=== PATIENT | female | born 1940 | race Caucasian/White ===

== ENCOUNTER → 2016-06-06 | Outpatient (CLI) | payer MEDICARE ==
[~2016-06-06] MED LIST: *BLDWK7; *MAMMOGRAM; /AMIO20TA PO; ADVAIR200 INHALATION; ALBUTEROL INHALATION; ALDA25TA2; ALDA25TA2 PO; ANTIV 25 PO; ARTISOL2 OU; ASP325; ASPI325T PO; AVELOX PO; BENA25CA2 PO; BENA25TA4 PO; BENEPOW7 PO; CAHNTIXC PO; CEFTIN250 PO; CHAN0.5P PO; CICL0.776 EX; CLARITIN10 PO; COLA100C PO; COLA100C2 PO; COLACE; COMBIVENT PO; DOXYCYC100; DOXYCYC100 PO; DRISDOL50 PO; DUONSOL; DUONSOL INHALATION; DYAZIDE; DYAZIDE PO; FLUT1SPR2; FURO40TA2 PO; GABA300C3 PO; HABITROL14 TOPICAL; HABITROL2 TOPICAL; HABITROL21 TOPICAL; INSUDET SC; LANO0.1211 PO; LASI20TA PO; LASI80TA; LEVOXYL25 MCG PO; LIPI80TA; LIPITOR40 PO; LIPITOR80; LIPITOR80 PO; LISI10TA4 PO; LISINOPR5 PO; MACR100C3 PO; MAXZIDE PO; MAXZIDE25 PO; MOTRIN600 PO; MUCINEX PO; MYSO50TA5 PO; MYSOLINE50 PO; NASACORTAQ NASALLY; NASONEX NASAL; NICORETTE PO; NICOTROLIN; NORVASC5 PO; OXYGEN NC; PACE200T PO; PERC5TAB8; PRED20TA PO; PREDNISO10 PO; PRIM250T5 PO; PROA1AER INH; PROVENTILI INHALE; PROVENTILI PO; PROZAC20; RANI150T PO; RANI15TA PO; REME30TA PO; REMERON; REMERON PO; REMERON15 PO; SENN8.6T10 PO; SENO8.6T5; SENO8.6T5 PO; SENOKOTTAB; SIMV80TA PO; SPACER -; SPIR25TA2 PO; SPIRIVA; SYNT150T PO; SYNTHROID1 PO; TYLE325T5 PO; VITA100037 PO; VITA100066 PO; VITAMIN B COMPLE1; VITAMIN D50000 UNT; VITAMIN D50000 UNT PO; ZETIA PO; ZITHROZPAK PO; ZOCOR80 PO; ZOLOFT50; ZYBAN150; [UNRECOGNIZED DRUG - OTHER]; antivert PO
--- NOTE | 2016-06-11 11:46 | RADONC ---
RADIATION ONCOLOGY FOLLOWUP NOTE DATE: 06/06/2016 CHART NUMBER: [id number]. DIAGNOSIS: Lung cancer. STAGE: IA, [id number]. ECOG PERFORMANCE STATUS: 2. FOLLOWUP NOTE: Ms. 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 The patient presents today reporting that she is doing quite well with no complaints at this time related to her radiation therapy or disease. She continues to have physical limitations and is in a wheelchair, which is unchanged. She continues to have shortness of breath, which has not increased. She has weakness in her arms and legs and decreased energy. The patient's review of systems is positive for above, but is otherwise noncontributory. She denies nausea, vomiting, fevers, chills, night sweats, diplopia, headaches, anxiety, depression, anorexia, weight loss, visual disturbances, chest pain, urinary or bowel difficulties, bone pain or neurological problems. PHYSICAL EXAMINATION: The patient is a chronically ill-appearing white female in no acute distress who is presenting a wheelchair. HEENT: Exam is normocephalic, atraumatic. Extraocular movements are intact. There is no palpable cervical, supraclavicular, infraclavicular, axillary or inguinal lymphadenopathy present. Her lungs are clear to auscultation and percussion. Her heart is regular rate rhythm. Her abdomen is benign with no hepatosplenomegaly, masses or tenderness. Skeletal examination reveals no tenderness to pressure, percussion of the bony skeleton. Extremities: Reveal no clubbing, cyanosis or edema. ASSESSMENT: The patient is clinically stable at this time. She is scheduled for a PET scan in July. She is being closely followed by her medical oncologist, Dr. Solorzano as well as her other physicians and I have therefore set her up for routine followup in our office in 6 months' time. cc: MD Lloyd Francsico MD [facility] [address], [address] [facility] [address] Hong Kaur DO [facility] [id number] [facility] [id number] Suhas Quesada MD [facility] [address] [id number]
== END ==
LOC: M ONCR 10:59
PROVIDERS: ATTEND Radiology Radiation Oncology
DX: C34.12 Malignant neoplasm of upper lobe, left bronchus or lung (principal)

== ENCOUNTER → 2016-06-06 | Outpatient (CLI) | payer MEDICARE ==
[2016-06-06 11:39] LABS: ALBUMIN 3.1 GM/DL (3.2-5.2); ALBUMIN/GLOBULIN RATIO 0.78 (1.00-1.93); ALKALINE PHOSPHATASE 112 U/L (45-117); ALT/SGPT 27 U/L (12-78); ANION GAP 6 MEQ/L (8-16); AST/SGOT 24 U/L (15-37); BILIRUBIN,TOTAL 0.2 MG/DL (0.2-1.0); BLOOD UREA NITROGEN 22 MG/DL (7-18); CALCIUM LEVEL 8.5 MG/DL (8.8-10.2); CARBON DIOXIDE LEVEL 30 MEQ/L (21-32); CHLORIDE LEVEL 102 MEQ/L (98-107); CREATININE FOR GFR 0.78 MG/DL (0.55-1.02); FREE T4 1.31 NG/DL (0.76-1.46); GLOMERULAR FILTRATION RATE > 60.0 (>39); GLUCOSE, FASTING 83 MG/DL (83-110); POTASSIUM SERUM 4.7 MEQ/L (3.5-5.1); SODIUM LEVEL 138 MEQ/L (136-145); TOTAL PROTEIN 7.1 GM/DL (6.4-8.2)
== END ==
LOC: M LAB 09:43
PROVIDERS: ATTEND Nurse Practitioner Family
DX: E03.9 Hypothyroidism, unspecified (principal); E11.21 Type 2 diabetes mellitus with diabetic nephropathy

== ENCOUNTER 2016-06-17 05:01 | Inpatient (IN) | payer MEDICARE ==
[~2016-06-17] VITALS: Ht 165.1 cm; Wt 105.2 kg
[2016-06-17] MEDS ORDERED: IPRATROPIUM 0.5MG/ALBUTEROL 2.5MG INH SOL UD 3ML (DUONEB)(J7620) NEB PRN (06:15)
[2016-06-17 06:47] LABS: VENOUS BASE EXCESS -1.5 (-2.0-2.0); VENOUS O2 SATURATION 91.2 % (60.0-80.0); VENOUS PARTIAL PRESSURE CO2 45.3 mmHg (38.0-50.0); VENOUS STANDARD HCO3 23.1 MEQ/L; VENOUS TOTAL CO2 25.6 MEQ/L (24.0-28.0)
[2016-06-17 06:50] LABS: BASO % 0.2 % (0.0-1.0); EOS # 0.1 K/mm3 (0.0-0.50); EOS % 0.9 % (0.0-3.0); LARGE UNSTAINED CELL % 0.5 % (0.0-4.0); LYMPH # 0.3 K/mm3 (1.5-4.5); LYMPH % 3.3 % (24.0-44.0); MEAN CORPUSCULAR HEMOGLOBIN 28.3 pg (27.0-33.0); MEAN CORPUSCULAR HGB CONC 32.1 g/dl (32.0-36.5); MEAN CORPUSCULAR VOLUME 88.1 fl (80.0-96.0); MONO # 0.3 K/mm3 (0.0-0.8); MONO % 3.8 % (0.0-5.0); NEUTROPHILS # 7.1 K/mm3 (1.8-7.7); NEUTROPHILS % 91.2 % (36.0-66.0); PLATELET COUNT, AUTOMATED 234 k/mm3 (150-450); RED CELL DISTRIBUTION WIDTH 15.7 % (11.5-14.5); WHITE BLOOD COUNT 7.8 K/mm3 (4.0-10.0)
[2016-06-17 07:07] LABS: CALCIUM LEVEL 7.9 MG/DL (8.8-10.2); GLOMERULAR FILTRATION RATE 57.4 (>39); POTASSIUM SERUM 3.6 MEQ/L (3.5-5.1)
[2016-06-17] MEDS ORDERED: OSELTAMIVIR PHOSPHATE 75 MG CAP (TAMIFLU) PO ONE (07:15)
[2016-06-17] MEDS: HumaLOG INSULIN (NovoLOG) PER UNIT SC SCH ×4 (07:30→21:00)
[2016-06-17] MEDS: IPRATROPIUM 0.5MG/ALBUTEROL 2.5MG INH SOL UD 3ML (DUONEB)(J7620) NEB SCH ×3 (08:00→19:38)
[2016-06-17] MEDS ORDERED: PRIM50TA6 PO (08:05)
[2016-06-17] MEDS ORDERED: MECL-86 PO ×2 (08:05)
[2016-06-17] MEDS ORDERED: ATOR1TAB18 PO (08:06)
[2016-06-17] MEDS ORDERED: LEVO150T7 PO (08:06)
[2016-06-17] MEDS ORDERED: GLUCOSE 4 GM CHEW TABLET PO PRN (09:00)
[2016-06-17] MEDS ORDERED: GLUCAGON FOR INJ 1 MG VIAL (J1610) SC PRN (09:00)
[2016-06-17] MEDS ORDERED: ONDANSETRON 4 MG TAB (S0181) PO PRN (09:00)
[2016-06-17] MEDS: OSELTAMIVIR PHOSPHATE 75 MG CAP (TAMIFLU) PO SCH ×2 (09:00→22:08)
[2016-06-17] MEDS ORDERED: ACETAMINOPHEN TAB 650MG DOSE (2X325MG) PO PRN (09:00)
[2016-06-17] MEDS ORDERED: FUROSEMIDE 20 MG TAB PO SCH (09:00)
[2016-06-17] MEDS ORDERED: DEXTROSE 50% 50 ML SYRINGE IV PRN (09:00)
[2016-06-17] MEDS: ASPIRIN 325 MG TAB PO SCH (09:42)
[2016-06-17] MEDS: methylPREDNISolone INJ 125 MG/2 ML VIAL (J2930) IV SCH ×2 (09:43→17:30)
[2016-06-17] MEDS: AMIODARONE 200 MG TAB (PACERONE) PO SCH (09:43)
[2016-06-17] MEDS: PANTOPRAZOLE 40MG TAB (PROTONIX) PO SCH (09:43)
[2016-06-17] MEDS: DOCUSATE SODIUM 100 MG CAP PO SCH ×2 (09:43→22:09)
[2016-06-17] MEDS: IPRATROPIUM 0.5MG/ALBUTEROL 2.5MG INH SOL UD 3ML (DUONEB)(J7620) NEB PRN ×2 (09:52→17:13)
[2016-06-17] MEDS ORDERED: FUROSEMIDE 100 MG/10 ML VIAL (J1940) IV SCH (10:00)
[2016-06-17] MEDS: LEVOTHYROXINE 0.15 MG TAB (150 MCG) PO SCH (11:07)
[2016-06-17] MEDS: SENNA 8.6 MG TAB (SENOKOT) PO SCH ×2 (11:07→22:08)
[2016-06-17] MEDS: PRIMIDONE 50 MG TAB PO SCH ×2 (11:08→22:09)
--- NOTE | 2016-06-17 11:51 | REP ---
Dyspnea and cough. COMPARISON: 10/30/2015 Chronic changes are seen in the left lung with previous operative procedure. There are Cristina B lines involving the right lung with a generalized increase in the interstitial markings, pulmonary vascular haziness, right perihilar, peribronchial cuffing, and evidence of pulmonary vascular redistribution. The cardiomediastinal silhouette is unchanged. IMPRESSION: 1. I suspect there is interstitial edema on the right as described above. This needs to be correlated clinically. 2. Chronic changes as described above. Signed by Lonnie Vega DO 06/17/2016 01:52 P
[2016-06-17 14:00] VITALS: BP 98/40
[2016-06-17] MEDS: HEPARIN SOD (PORCINE) 5000 UNITS/ML VIAL SC SCH ×2 (14:43→22:10)
[2016-06-17] MEDS ORDERED: cefTRIAXone SOD 1 GM in D5W MINI-BAG PLUS 50 ML IV SCH (15:00)
[2016-06-17] MEDS ORDERED: AZITHROMYCIN INJ 500 MG, VIAL MATE ADAPTER 1 EACH in D5W 250 ML IV SCH (16:00)
--- NOTE | 2016-06-17 19:50 | ECGEPIP ---
Stationary ECG Study [facility] - ED Test Date: 2016-06-17 Pat Name: JENNIFER SEVERINO Department: Room: - Gender: F Field Clerk: ashleigh : 1940 Requested By: DIANNE Segura Order Number: [id number] Reading MD: Armen Louis Measurements Intervals [place] Rate: 93 P: -2 WI: 152 QRS: 17 QRSD: 90 T: 118 QT: 394 QTc: 492 Interpretive Statements SINUS RHYTHM ST DEVIATION AND MODERATE T-WAVE ABNORMALITY, CONSIDER LATERAL ISCHEMIA PROLONGED QTC CW 10/30/15 - RATE INCREASED QTC PROLONGED NONSPECIFIC ST T WAVE CHANGES Electronically Signed On 06-17-2016 19:50:24 EDT by Armen Louis
[2016-06-17] MEDS ORDERED: OSELTAMIVIR PHOSPHATE 75 MG CAP (TAMIFLU) PO SCH (21:00)
[2016-06-17 22:00] VITALS: BP 109/55
[2016-06-17] MEDS: ATORVASTATIN 20 MG TAB PO SCH (22:08)
[2016-06-17] MEDS: LEVEMIR (INSULIN DETEMIR) 1 UNITS/0.01ML SC SCH (22:10)
[2016-06-18] MEDS: IPRATROPIUM 0.5MG/ALBUTEROL 2.5MG INH SOL UD 3ML (DUONEB)(J7620) NEB SCH ×4 (01:21→19:39)
[2016-06-18] MEDS: methylPREDNISolone INJ 125 MG/2 ML VIAL (J2930) IV SCH ×3 (01:29→17:26)
[2016-06-18 06:00] VITALS: BP 100/58
[2016-06-18] MEDS: LEVOTHYROXINE 0.15 MG TAB (150 MCG) PO SCH (06:05)
[2016-06-18] MEDS: HEPARIN SOD (PORCINE) 5000 UNITS/ML VIAL SC SCH ×3 (06:06→21:22)
[2016-06-18 06:37] LABS: BASO % 0.1 % (0.0-1.0); EOS % 0.9 % (0.0-3.0); LARGE UNSTAINED CELL % 0.8 % (0.0-4.0); LYMPH # 0.4 K/mm3 (1.5-4.5); LYMPH % 6.7 % (24.0-44.0); MEAN CORPUSCULAR HEMOGLOBIN 28.4 pg (27.0-33.0); MEAN CORPUSCULAR HGB CONC 32.9 g/dl (32.0-36.5); MEAN CORPUSCULAR VOLUME 86.4 fl (80.0-96.0); MONO # 0.3 K/mm3 (0.0-0.8); MONO % 5.9 % (0.0-5.0); NEUTROPHILS # 4.5 K/mm3 (1.8-7.7); NEUTROPHILS % 85.7 % (36.0-66.0); PLATELET COUNT, AUTOMATED 219 k/mm3 (150-450); RED CELL DISTRIBUTION WIDTH 15.7 % (11.5-14.5); WHITE BLOOD COUNT 5.2 K/mm3 (4.0-10.0)
[2016-06-18 06:56] LABS: ALBUMIN 2.6 GM/DL (3.2-5.2); ALBUMIN/GLOBULIN RATIO 0.55 (1.00-1.93); ALKALINE PHOSPHATASE 75 U/L (45-117); ALT/SGPT 26 U/L (12-78); ANION GAP 8 MEQ/L (8-16); AST/SGOT 35 U/L (15-37); BILIRUBIN,TOTAL 0.1 MG/DL (0.2-1.0); BLOOD UREA NITROGEN 21 MG/DL (7-18); CALCIUM LEVEL 8.3 MG/DL (8.8-10.2); CARBON DIOXIDE LEVEL 28 MEQ/L (21-32); CHLORIDE LEVEL 100 MEQ/L (98-107); CREATININE FOR GFR 0.77 MG/DL (0.55-1.02); GLOMERULAR FILTRATION RATE > 60.0 (>39); GLUCOSE, FASTING 185 MG/DL (83-110); POTASSIUM SERUM 3.8 MEQ/L (3.5-5.1); SODIUM LEVEL 136 MEQ/L (136-145); TOTAL PROTEIN 7.3 GM/DL (6.4-8.2)
[2016-06-18] MEDS: HumaLOG INSULIN (NovoLOG) PER UNIT SC SCH ×4 (07:41→21:00)
--- NOTE | 2016-06-18 07:57 | IPNPDOC ---
Subjective Date Seen The patient was seen on 06/18/16. Subjective Chief Complaint/HPI The patient is a 75-year-old female admitted with a reason for visit of Copd Exacerbation; Influenza A. Events since last encounter Noting significant improvement in breathing symptoms. Diuresed with Lasix overnight. Stopped due to soft BP. Uses nocturnal oxygen 2 LNC at home. Non- oxygen dependednt during day. Follows with Dr. Kaur as an outpatient. Constitutional: Denies: Chills, Fever, Night Sweats ENT: Denies: Dysphagia, Ear Pain, Head Aches Skin: Denies: Breakdown, Lesions, Rash Pulmonary: Reports: Cough, Dyspnea Cardiovascular: Denies: Chest Pain, Lt Headedness, Orthopnea, Palpitations, Paroxysmal Noc. Dyspnea Gastrointestinal: Denies: Abdominal Pain, Constipation, Diarrhea, Nausea, Vomiting Musculoskeletal: Denies: Back Pain, Joint Pain, Muscle Pain, Neck Pain, Spasms Psych: Reports: Mood Normal, Denies: Depression, Memory Issues Objective Physical Examination General Exam: Positive: Alert, No Acute Distress Eye Exam: Positive: Conjunctiva & lids normal, EOMI, PERRLA, Negative: Sclera icteric Neck Exam: Positive: Supple, Negative: JVD, thyromegaly Chest Exam: Positive: Wheezing Extremity Exam: Positive: Normal pulses, Negative: Clubbing, Cyanosis, Edema Skin Exam: Positive: Nl turgor and temperature, Negative: Breakdown, Rash Psych Exam: Positive: Mental status NL, Mood NL, Oriented x 3 Assessment /Plan Problems (1) COPD exacerbation Status: Acute Problem Text: Solumedrol 60 mg IV q 8 hrs. Azithromycin and Rochephin D#2. Presumed pneumonia vs pulmonary edema on CXR. Will reopeat CXR today. Wean oxygen during day. Continue Nocturnal oxygenation at 2LNC. (2) Influenza A Status: Acute Response to Treatment: Improving Problem Specific Plan: Monitor Clinically Problem Text: Tamiflu day #2 (3) COPD (chronic obstructive pulmonary disease) Status: Acute (4) Diabetes mellitus Status: Chronic Response to Treatment: Stable Problem Specific Plan: Monitor Clinically (5) CAD (coronary artery disease) Status: Chronic Problem Specific Plan: Monitor Clinically (6) Hypothyroid Status: Chronic Problem Specific Plan: Monitor Clinically (7) Paroxysmal atrial fibrillation Status: Chronic Plan/VTE VTE Prophylaxis Ordered?: Yes (Heparin) Plan/Urinary Catheter Reason for insertion/continuin: Patient request VS, I&O, 24H, Kenny Vital Signs/I&O Vital Signs Date Time Temp Pulse Resp B/P Pulse Ox O2 Delivery O2 Flow Rate FiO2 06/18/16 06:00 98.0 76 20 100/58 100 Nasal Cannula 2.0 06/17/16 05:25 92 I&O- Last 24 Hours up to 6 AM 06/18/16 05:59 Intake Total 840 ml Output Total 975 ml Balance -135 ml Laboratory Data 24H LABS Laboratory Tests 2 06/17/16 09:23: Bedside Glucose (Misc Panel) 195H 06/17/16 12:55: Bedside Glucose (Misc Panel) 192H 06/17/16 17:05: Bedside Glucose (Misc Panel) 223H 06/17/16 20:27: Bedside Glucose (Misc Panel) 165H 06/18/16 05:46: Blood Urea Nitrogen 21H, Creatinine 0.77, Sodium Level 136, Potassium Level 3.8 , Chloride Level 100, Carbon Dioxide Level 28, Calcium Level 8.3L, Aspartate Amino Transf (AST/SGOT) 35, Alanine Aminotransferase (ALT/SGPT) 26, Alkaline Phosphatase 75, Total Bilirubin 0.1L, Total Protein 7.3, Albumin 2.6L, Albumin/ Globulin Ratio 0.55L, Anion Gap 8, White Blood Count 5.2, Red Blood Count 3.08L , Hemoglobin 8.8L, Hematocrit 26.6L, Mean Corpuscular Volume 86.4, Mean Corpuscular Hemoglobin 28.4, Mean Corpuscular Hemoglobin Concent 32.9, Red Cell Distribution Width 15.7H, Platelet Count 219, Neutrophils (%) (Auto) 85.7H, Lymphocytes (%) (Auto) 6.7L, Monocytes (%) (Auto) 5.9H, Eosinophils (%) (Auto) 0.9, Basophils (%) (Auto) 0.1, Neutrophils # (Auto) 4.5, Lymphocytes # (Auto) 0.4L, Monocytes # (Auto) 0.3, Eosinophils # (Auto) 0.0, Basophils # (Auto) 0.0, Glomerular Filtration Rate > 60.0, Large Unclassified Cells # 0.0, Large Unclassified Cells % 0.8 CBC/BMP Laboratory Tests 06/18/16 05:46 Calcium Level 8.3 L, Aspartate Amino Transf (AST/SGOT) 35, Alanine Aminotransferase (ALT/SGPT) 26, Alkaline Phosphatase 75, Total Bilirubin 0.1 L, Total Protein 7.3, Albumin 2.6 L, Red Blood Count 3.08 L, Mean Corpuscular Volume 86.4, Mean Corpuscular Hemoglobin 28.4, Mean Corpuscular Hemoglobin Concent 32.9, Red Cell Distribution Width 15.7 H, Neutrophils (%) (Auto) 85.7 H , Lymphocytes (%) (Auto) 6.7 L, Monocytes (%) (Auto) 5.9 H, Eosinophils (%) ( Auto) 0.9, Basophils (%) (Auto) 0.1, Neutrophils # (Auto) 4.5, Lymphocytes # ( Auto) 0.4 L, Monocytes # (Auto) 0.3, Eosinophils # (Auto) 0.0, Basophils # (Auto ) 0.0 Microbiology Microbiology 06/17/16 Blood Culture, Received Pending 06/17/16 Blood Culture - Preliminary, Resulted No growth after 24 hours . All specim... 06/17/16 Influenza Virus Type A Antigen - Final, Complete 06/17/16 Influenza Virus Type B Antigen - Final, Complete Adilene Chen [facility] Jun 18, 2016 07:57
[2016-06-18] MEDS: DOCUSATE SODIUM 100 MG CAP PO SCH ×2 (09:45→21:21)
[2016-06-18] MEDS: AMIODARONE 200 MG TAB (PACERONE) PO SCH (09:46)
[2016-06-18] MEDS: ASPIRIN 325 MG TAB PO SCH (09:46)
[2016-06-18] MEDS: SENNA 8.6 MG TAB (SENOKOT) PO SCH ×2 (09:46→21:21)
[2016-06-18] MEDS: PANTOPRAZOLE 40MG TAB (PROTONIX) PO SCH (09:46)
[2016-06-18] MEDS: OSELTAMIVIR PHOSPHATE 75 MG CAP (TAMIFLU) PO SCH ×2 (09:46→21:21)
[2016-06-18] MEDS: PRIMIDONE 50 MG TAB PO SCH ×2 (09:47→21:21)
--- NOTE | 2016-06-18 10:00 | REP ---
CHEST X-RAY: TWO VIEWS. HISTORY: Followup COPD. Pulmonary edema. COMPARISON STUDY: June 17, 2016 FINDINGS: The patient is status post left thoracotomy with clips in the left hilus and some volume loss in the left hemithorax. There is tenting of the left hemidiaphragm. Some pleural thickening or fluid is seen at the base, and there is pleural thickening along the lateral aspect of the chest. Clips are noted in the soft tissues of the neck on the left. Increased markings are noted in the left perihilar region on the frontal view and superiorly and posteriorly on the lateral radiograph. This is unchanged. The right lung is clear. IMPRESSION: Stable chronic changes post thoracotomy on the left. No new infiltrate. Signed by Arturo Greene MD 06/18/2016 12:19 P
--- NOTE | 2016-06-18 11:22 | HPE ---
DATE OF ADMISSION: 06/17/[address]. Suhas Quesada. Attending today is Dr. Kwesi Jeong. HISTORY: This is a 75-year-old female patient who presented to [facility] Emergency Room with a 2-1/2-day history of increasing shortness of breath, cough, body aches, intermittent sore throat, intermittent headaches. 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 She was also demonstrating some confusion. She woke a family member and asked for them to transport her to the emergency room. They instead called emergency medical services (EMS), and she was brought in. She was found to be hypoxemic. She was administered a DuoNeb. Blood work and laboratory testing revealed that she was positive for influenza A. She did have a chest x-ray done, as well, which was without any active infiltrates but questionable interstitial edema. Admission was recommended as a result. Her past medical history includes: 1. Small cell lung cancer in 2008 with recurrence in 2014, status post radiation. 2. Diabetes mellitus type 2. 3. Hypothyroidism. 4. Morbid obesity. 5. Hyperlipidemia. 6. Hypertension. 7. Hypertensive heart disease. 8. Diastolic congestive heart failure. 9. Peripheral vascular disease. 10. Paroxysmal atrial fibrillation, on amiodarone. 11. Chronic obstructive pulmonary disease (COPD). 12. Bronchiectasis. 13. Fatty liver. 14. History of pancreatitis. 15. Depression. 16. Vitamin D deficiency. 17. Essential tremor. SURGICAL HISTORY: Includes: 1. LCA and aortal femoral bypass. 2. Partial hysterectomy in the . 3. Left CEA in 1997. 4. Left upper lobectomy secondary to cancer in 2008. FAMILY HISTORY: Is noncontributory. SOCIAL HISTORY: She is a former smoker. She has quit in the last 7 or 8 years. She does try to follow a [id number] diet. She does not exercise regularly. She lives alone at home. ALLERGIES: Include BACITRACIN and NEOMYCIN, which cause itching rash. PENICILLIN causes nausea and vomiting. REVIEW OF SYSTEMS: The patient denies any chest pain, palpitations. She denies any lightheadedness or dizziness. She has not had any abdominal pain, nausea, vomiting, or diarrhea. She does have a history of chronic constipation, for which she takes medication. Otherwise, review of systems is negative or as mentioned above. VITAL SIGNS: Reveal a temperature of 100.7, 101,1 on admission. Pulse is 88. Respirations are 20. Blood pressure is 126/58. Pulse oximetry is 95 on 3 liters via nasal cannula. In general, this is a morbidly obese elderly female who is lying comfortably in the emergency room [facility]. She is accompanied by family. HEENT: Head is normocephalic, atraumatic. Pupils are equal, round, reactive to light and accommodation. Tympanic membranes are clear and flat bilaterally. Oropharynx is slightly erythematous. NECK: Is supple. She has mild anterior cervical palpable lymphadenopathy. LUNGS: Are diminished. She has end expiratory wheezes. She has bibasilar crackles. CARDIOVASCULAR: Is regular rate and rhythm. She has no audible murmurs. ABDOMEN: Is morbidly obese, soft, nontender. No palpable organomegaly. She has positive bowel sounds. EXTREMITIES: Are puffy with trace bilateral lower extremity pedal and pretibial edema. INVESTIGATIONS: Reveal a white blood cell count of 7.8, hemoglobin is 9.5, hematocrit is 29.5, platelets 234. Sodium is 136, potassium is 3.6, chloride is 100, carbon dioxide is 25, BUN 16, creatinine 1, glucose 230. Again, influenza A is positive. Influenza B is negative. Chest x-ray suggests interstitial edema. ASSESSMENT AND PLAN: 1. Influenza A causing a chronic obstructive pulmonary disease exacerbation. I will start her on Tamiflu 75 mg by mouth twice a day times 5 days. I counseled the patient on the risks and benefits associated with medication. I will also start her on Solu-Medrol 60 mg intravenous (IV) every 8 hours. Will titrate her oxygen levels to keep her between 88% and 92%. I will order DuoNebs every 6 hours and every 2 hours as needed for increasing shortness of breath. She will be admitted to medical-surgical floor for monitoring. 2. Acute on chronic diastolic congestive heart failure. She appears to be on Lasix 100 mg by mouth daily. I will give her intravenous (IV) Lasix 60 mg three times daily. Will reassess this. I do not believe she has got a whole lot of fluid to come off, but she does appear mildly fluid overloaded. Will resume her oral Lasix when it is appropriate. She will have a [id number] diet. 3. Diabetes mellitus type 2. She is on Levemir at home. Will reduce this dose while she is in the hospital and place her on sliding scale insulin. She will be on a consistent-carbohydrate diet. 4. Hypertensive heart disease with heart failure. She is not on any antihypertensives. In fact, her blood pressure has been running low in the office as of late; and, therefore, this is appropriate. Her pressures are currently stable in the emergency room, but we will continue her aspirin and statin. 5. Hypothyroidism. Will continue her Synthroid. 6. Gastrointestinal (GI) prophylaxis. Will place her on Protonix 40 mg daily. 7. Deep venous thrombosis (DVT) prophylaxis. Will place her on heparin, sequential compression devices (SCDs), and thromboembolic deterrents (TEDs).
[2016-06-18 14:00] VITALS: BP 126/87
[2016-06-18] MEDS: ATORVASTATIN 20 MG TAB PO SCH (21:20)
[2016-06-18] MEDS: LEVEMIR (INSULIN DETEMIR) 1 UNITS/0.01ML SC SCH (21:22)
[2016-06-18 22:00] VITALS: BP 130/77
[2016-06-19] MEDS: IPRATROPIUM 0.5MG/ALBUTEROL 2.5MG INH SOL UD 3ML (DUONEB)(J7620) NEB SCH ×2 (01:33→07:26)
[2016-06-19] MEDS: methylPREDNISolone INJ 125 MG/2 ML VIAL (J2930) IV SCH ×2 (02:08→10:27)
[2016-06-19] MEDS: LEVOTHYROXINE 0.15 MG TAB (150 MCG) PO SCH (05:46)
[2016-06-19] MEDS: HEPARIN SOD (PORCINE) 5000 UNITS/ML VIAL SC SCH (05:46)
[2016-06-19 06:00] VITALS: BP 120/59
[2016-06-19 06:25] LABS: BASO % 0.1 % (0.0-1.0); EOS % 0.2 % (0.0-3.0); LARGE UNSTAINED CELL # 0.1 K/mm3 (0.0-0.4); LYMPH # 0.5 K/mm3 (1.5-4.5); LYMPH % 8.8 % (24.0-44.0); MEAN CORPUSCULAR HEMOGLOBIN 29.3 pg (27.0-33.0); MEAN CORPUSCULAR HGB CONC 33.7 g/dl (32.0-36.5); MEAN CORPUSCULAR VOLUME 86.8 fl (80.0-96.0); MONO # 0.3 K/mm3 (0.0-0.8); MONO % 5.8 % (0.0-5.0); NEUTROPHILS # 4.9 K/mm3 (1.8-7.7); NEUTROPHILS % 84.1 % (36.0-66.0); PLATELET COUNT, AUTOMATED 221 k/mm3 (150-450); RED CELL DISTRIBUTION WIDTH 15.8 % (11.5-14.5); WHITE BLOOD COUNT 5.9 K/mm3 (4.0-10.0)
[2016-06-19 06:29] LABS: ALBUMIN 2.5 GM/DL (3.2-5.2); ALBUMIN/GLOBULIN RATIO 0.52 (1.00-1.93); ALKALINE PHOSPHATASE 74 U/L (45-117); ALT/SGPT 35 U/L (12-78); ANION GAP 7 MEQ/L (8-16); AST/SGOT 44 U/L (15-37); BILIRUBIN,TOTAL 0.1 MG/DL (0.2-1.0); BLOOD UREA NITROGEN 26 MG/DL (7-18); CALCIUM LEVEL 8.4 MG/DL (8.8-10.2); CARBON DIOXIDE LEVEL 28 MEQ/L (21-32); CHLORIDE LEVEL 105 MEQ/L (98-107); CREATININE FOR GFR 0.86 MG/DL (0.55-1.02); GLOMERULAR FILTRATION RATE > 60.0 (>39); GLUCOSE, FASTING 126 MG/DL (83-110); POTASSIUM SERUM 4.3 MEQ/L (3.5-5.1); SODIUM LEVEL 140 MEQ/L (136-145); TOTAL PROTEIN 7.3 GM/DL (6.4-8.2)
[2016-06-19] MEDS: PRIMIDONE 50 MG TAB PO SCH (08:27)
[2016-06-19] MEDS: PANTOPRAZOLE 40MG TAB (PROTONIX) PO SCH (08:27)
[2016-06-19] MEDS: ASPIRIN 325 MG TAB PO SCH (08:27)
[2016-06-19] MEDS: HumaLOG INSULIN (NovoLOG) PER UNIT SC SCH (08:27)
[2016-06-19] MEDS: SENNA 8.6 MG TAB (SENOKOT) PO SCH (08:28)
[2016-06-19] MEDS: DOCUSATE SODIUM 100 MG CAP PO SCH (08:28)
[2016-06-19] MEDS: OSELTAMIVIR PHOSPHATE 75 MG CAP (TAMIFLU) PO SCH (08:28)
[2016-06-19] MEDS: AMIODARONE 200 MG TAB (PACERONE) PO SCH (08:28)
--- NOTE | 2016-06-19 09:26 | IPNPDOC ---
Subjective Date Seen The patient was seen on 06/19/16. Subjective Chief Complaint/HPI The patient is a 75-year-old female admitted with a reason for visit of Copd Exacerbation; Influenza A. Events since last encounter Feeling well. using oxygen at HS. Placed on oxygen during waking hours with levels at 100%. Patient continues to improve. Needs to clear PT with stairs today for safe DC. Constitutional: Denies: Chills, Fever, Night Sweats Pulmonary: Reports: Cough, Dyspnea Cardiovascular: Denies: Chest Pain, Lt Headedness, Orthopnea, Palpitations, Paroxysmal Noc. Dyspnea Gastrointestinal: Denies: Abdominal Pain, Constipation, Diarrhea, Nausea, Vomiting Genitourinary: Denies: Dysuria, Frequency, Incontinence, Retention Psych: Reports: Mood Normal, Denies: Depression, Memory Issues Objective Physical Examination General Exam: Positive: Alert, No Acute Distress Eye Exam: Positive: Conjunctiva & lids normal, EOMI, PERRLA, Negative: Sclera icteric Neck Exam: Positive: Supple, Negative: JVD, thyromegaly Chest Exam: Positive: Clear to auscultation, Normal air movement Extremity Exam: Positive: Normal pulses, Negative: Clubbing, Cyanosis, Edema Skin Exam: Positive: Nl turgor and temperature, Negative: Breakdown, Rash Psych Exam: Positive: Mental status NL, Mood NL, Oriented x 3 Assessment /Plan Problems (1) COPD exacerbation Status: Acute Problem Text: 06/19/16: change to po Prednisone today. Noc ox tonight on RA to prove need for nocturnal oxygen, 100% on 2LNC. Solumedrol 60 mg IV q 8 hrs. Azithromycin and Rocephin D#2. Presumed pneumonia vs pulmonary edema on CXR. Will repeat CXR today. Wean oxygen during day. Continue Nocturnal oxygenation at 2LNC. (2) Influenza A Status: Acute Response to Treatment: Improving Problem Specific Plan: Monitor Clinically Problem Text: Tamiflu day #2 (3) COPD (chronic obstructive pulmonary disease) Status: Chronic (4) Diabetes mellitus Status: Chronic Response to Treatment: Stable Problem Specific Plan: Monitor Clinically (5) CAD (coronary artery disease) Status: Chronic Problem Specific Plan: Monitor Clinically (6) Hypothyroid Status: Chronic Problem Specific Plan: Monitor Clinically (7) Paroxysmal atrial fibrillation Status: Chronic Plan/VTE VTE Prophylaxis Ordered?: Yes (Heparin) Plan/Urinary Catheter Reason for insertion/continuin: Patient request VS, I&O, 24H, [facility] Vital Signs/I&O Vital Signs Date Time Temp Pulse Resp B/P Pulse Ox O2 Delivery O2 Flow Rate FiO2 06/19/16 06:00 97.7 73 19 120/59 100 Nasal Cannula 2.0 06/17/16 05:25 92 I&O- Last 24 Hours up to 6 AM 06/19/16 05:59 Intake Total 2340 ml Output Total 1400 ml Balance 940 ml Laboratory Data 24H LABS Laboratory Tests 2 06/18/16 11:58: Bedside Glucose (Misc Panel) 137H 06/18/16 16:37: Bedside Glucose (Misc Panel) 198H 06/18/16 20:51: Bedside Glucose (Misc Panel) 168H 06/19/16 05:53: Blood Urea Nitrogen 26H, Creatinine 0.86, Sodium Level 140, Potassium Level 4.3 , Chloride Level 105, Carbon Dioxide Level 28, Calcium Level 8.4L, Aspartate Amino Transf (AST/SGOT) 44H, Alanine Aminotransferase (ALT/SGPT) 35, Alkaline Phosphatase 74, Total Bilirubin 0.1L, Total Protein 7.3, Albumin 2.5L, Albumin/ Globulin Ratio 0.52L, Anion Gap 7L, White Blood Count 5.9, Red Blood Count 3.08L , Hemoglobin 9.0L, Hematocrit 26.7L, Mean Corpuscular Volume 86.8, Mean Corpuscular Hemoglobin 29.3, Mean Corpuscular Hemoglobin Concent 33.7, Red Cell Distribution Width 15.8H, Platelet Count 221, Neutrophils (%) (Auto) 84.1H, Lymphocytes (%) (Auto) 8.8L, Monocytes (%) (Auto) 5.8H, Eosinophils (%) (Auto) 0.2, Basophils (%) (Auto) 0.1, Neutrophils # (Auto) 4.9, Lymphocytes # (Auto) 0.5L, Monocytes # (Auto) 0.3, Eosinophils # (Auto) 0.0, Basophils # (Auto) 0.0, Glomerular Filtration Rate > 60.0, Large Unclassified Cells # 0.1, Large Unclassified Cells % 1.0 CBC/BMP Laboratory Tests 06/19/16 05:53 Calcium Level 8.4 L, Aspartate Amino Transf (AST/SGOT) 44 H, Alanine Aminotransferase (ALT/SGPT) 35, Alkaline Phosphatase 74, Total Bilirubin 0.1 L, Total Protein 7.3, Albumin 2.5 L, Red Blood Count 3.08 L, Mean Corpuscular Volume 86.8, Mean Corpuscular Hemoglobin 29.3, Mean Corpuscular Hemoglobin Concent 33.7, Red Cell Distribution Width 15.8 H, Neutrophils (%) (Auto) 84.1 H , Lymphocytes (%) (Auto) 8.8 L, Monocytes (%) (Auto) 5.8 H, Eosinophils (%) ( Auto) 0.2, Basophils (%) (Auto) 0.1, Neutrophils # (Auto) 4.9, Lymphocytes # ( Auto) 0.5 L, Monocytes # (Auto) 0.3, Eosinophils # (Auto) 0.0, Basophils # (Auto ) 0.0 Microbiology Microbiology 06/17/16 Blood Culture - Preliminary, Resulted No growth after 24 hours . All specim... 06/17/16 Blood Culture - Preliminary, Resulted No Growth after 48 hours. All Specime... 06/17/16 Influenza Virus Type A Antigen - Final, Complete 06/17/16 Influenza Virus Type B Antigen - Final, Complete Adilene Chen [facility] Jun 19, 2016 09:26
[2016-06-19] MEDS ORDERED: PRED20TA PO (09:45)
[2016-06-19] MEDS ORDERED: OSEL75CA2 PO (09:48)
--- NOTE | 2016-06-19 12:19 | DSES ---
DATE OF ADMISSION: 06/17/2016 DATE OF DISCHARGE: 06/19/2016 PRIMARY CARE PROVIDER: Dr. Suhas Quesada. ATTENDING PHYSICIAN: Dr. Kwesi Jeong HISTORY OF PRESENT ILLNESS: 75-year-old female presented to [facility] emergency room with a 2-1/2-day history of increasing shortness of breath , cough, body aches, sore throat, headaches. Workup did demonstrate that the patient was positive for influenza A and was mildly hypoxic on presentation with oxygen saturation in the 80s on presentation. HISTORY: The patient was placed on Tamiflu 75 mg twice a day for 5 days. Placed on Solu-Medrol 50 mg IV every 8 hours. Oxygen was started and given DuoNebs every 6 hours and every 2 hours as needed. The patient improved significantly and was able to be weaned off of oxygen within 24 hours. However, has continued on nocturnal oxygen which she uses at home. The patient has been saturating at 100% on 2 liters nasal cannula nocturnal oxygen saturations. I offered to repeat patient's NOCOX while she was an inpatient to see of she truly does need nocturnal oxygenation, however, she declines and wishes to go home and request that this be completed on an outpatient basis. PHYSICAL EXAMINATION: Vitals are stable. She is afebrile. Oxygen saturation 97% on room air. Blood pressure 120/59, heart rate 73, temperature 97.7. HEENT Neck is supple without lymphadenopathy or jugular venous distention. CARDIOVASCULAR: Heart regular rhythm and regular. PULMONARY: Lungs clear to auscultation bilaterally. ABDOMEN: Soft and nontender. EXTREMITIES: Bilateral lower extremities are without any edema. NEURO: She is alert and oriented times three. No tremors appreciated. PSYCH: Affect is appropriate. Conversation is congruent. Patient maintains eye contact. ASSESSMENT: 1. Influenza A 2. COPD exacerbation. 3. Diabetes. 4. History of small cell lung cancer in 2009 with recurrence in 2015 and radiation. 5. Hyperthyroidism. 6. Hyperlipidemia. 7. Morbid obesity. 8. Hypertension. 9. Hypertensive heart disease. 10. Diastolic congestive heart failure. 11. Peripheral vascular disease. 12. Paroxysmal atrial fibrillation. 13. History of bronchiectasis. 14. Fatty liver. 15. Depression. 16. Vitamin D deficiency. 17. Essential tremor. PLAN: The patient will be discharged home. Diet is carbohydrate consistent. Activities as tolerated. She will followup with primary care provider within the next 7 days. MEDICATIONS: - Tamiflu 75 mg by mouth twice a day, #6 capsules are given for a total of 5 days - prednisone 20 mg daily - acetaminophen 325 mg tablets, two by mouth every 4 hours as needed for pain. - albuterol HFA, two puffs four times a day as needed shortness of breath - amiodarone 200 mg by mouth daily - artificial tears one drop OU twice a day as needed dry eyes - aspirin 325 mg by mouth daily - atorvastatin 80 mg by mouth nightly - vitamin D 1000 international units. She is to take two by mouth daily - docusate sodium, 100 mg two by mouth twice a day as needed constipation - Flonase two sprays each nostril daily - furosemide 100 mg by mouth daily - Levemir 45 units subcutaneously nightly - levothyroxine 150 mcg by mouth a.m. - meclizine 25 mg by mouth twice a day - meclizine 25 mg by mouth nightly as needed vertigo or dizziness - primidone 50 mg tablets. She takes 200 mg by mouth q a.m. - primidone 50 mg tablets two by mouth every night - senna two tablets by mouth twice a day as needed constipation. - Benefiber one packet daily The patient is discharged in stable and satisfactory condition with no further questions at the time of discharge. [facility]
== END 2016-06-19 12:38 | disposition home or self-care (01) | DRG 194 ==
LOC: EDBD 05:01 → M ED 06:53 → M ED INP 08:47 → M MSPAV 14:03
PROVIDERS: ADMIT Family Medicine; ATTEND Family Medicine
DX: J11.00 Influenza due to unidentified influenza virus with unspecified type of pneumonia (principal); J44.1 Chronic obstructive pulmonary disease with (acute) exacerbation; I50.30 Unspecified diastolic (congestive) heart failure; E11.9 Type 2 diabetes mellitus without complications; E55.9 Vitamin D deficiency, unspecified; I48.0 Paroxysmal atrial fibrillation; E66.01 Morbid (severe) obesity due to excess calories; E78.4 Other hyperlipidemia; I11.0 Hypertensive heart disease with heart failure; E03.9 Hypothyroidism, unspecified; I73.9 Peripheral vascular disease, unspecified; R25.1 Tremor, unspecified; Z79.899 Other long term (current) drug therapy; Z79.82 Long term (current) use of aspirin; Z87.891 Personal history of nicotine dependence; K76.0 Fatty (change of) liver, not elsewhere classified

== ENCOUNTER → 2016-06-22 | Outpatient (CLI) | payer MEDICARE ==
[~2016-06-22] MED LIST changes: +ATOR1TAB18 PO; -COLA100C PO; +COLA100C3 PO; +GABA-282 PO; -GABA300C3 PO; +LEVO150T7 PO; +MECL-86 PO; +OSEL75CA2 PO; +PRIM50TA6 PO
[2016-06-22 14:21] LABS: BASO % 0.3 % (0.0-1.0); EOS # 0.1 K/mm3 (0.0-0.50); EOS % 0.7 % (0.0-3.0); LARGE UNSTAINED CELL # 0.2 K/mm3 (0.0-0.4); LARGE UNSTAINED CELL % 1.8 % (0.0-4.0); LYMPH # 0.8 K/mm3 (1.5-4.5); MEAN CORPUSCULAR HEMOGLOBIN 27.2 pg (27.0-33.0); MEAN CORPUSCULAR HGB CONC 31.2 g/dl (32.0-36.5); MEAN CORPUSCULAR VOLUME 87.1 fl (80.0-96.0); MONO # 0.4 K/mm3 (0.0-0.8); MONO % 4.2 % (0.0-5.0); NEUTROPHILS # 6.9 K/mm3 (1.8-7.7); PLATELET COUNT, AUTOMATED 288 k/mm3 (150-450); RED CELL DISTRIBUTION WIDTH 15.5 % (11.5-14.5); RETIC HEMOGLOBIN CONTENT CHr 28.1 PG (24-36); RETICULOCYTE ABSOLUTE ADVIA212 117 x10(9)/L (17-77); WHITE BLOOD COUNT 8.3 K/mm3 (4.0-10.0)
[2016-06-22 14:50] LABS: ALBUMIN 2.7 GM/DL (3.2-5.2); ALBUMIN/GLOBULIN RATIO 0.61 (1.00-1.93); ALKALINE PHOSPHATASE 90 U/L (45-117); ALT/SGPT 39 U/L (12-78); ANION GAP 11 MEQ/L (8-16); AST/SGOT 33 U/L (15-37); BILIRUBIN,TOTAL 0.2 MG/DL (0.2-1.0); BLOOD UREA NITROGEN 25 MG/DL (7-18); CARBON DIOXIDE LEVEL 27 MEQ/L (21-32); CHLORIDE LEVEL 106 MEQ/L (98-107); CREATININE FOR GFR 0.86 MG/DL (0.55-1.02); FERRITIN 90 NG/ML (8-252); GLOMERULAR FILTRATION RATE > 60.0 (>39); GLUCOSE, FASTING 114 MG/DL (83-110); PERCENT SATURATION 17.3 % (13.2-37.4); POTASSIUM SERUM 3.9 MEQ/L (3.5-5.1); SODIUM LEVEL 144 MEQ/L (136-145); TOTAL IRON BINDING CAPACITY 249 UG/DL (250-450); TOTAL PROTEIN 7.1 GM/DL (6.4-8.2)
== END ==
LOC: M WUC 12:32
PROVIDERS: ATTEND Nurse Practitioner Family
DX: D64.9 Anemia, unspecified (principal); I50.32 Chronic diastolic (congestive) heart failure
CPT/HCPCS: 36415; 80053; 82728; 83550; 83880; 85025; 85046; G0463

== ENCOUNTER → 2016-06-22 | Outpatient (REF) | payer MEDICARE ==
[~2016-06-22] MED LIST changes: +COLA100C PO; -COLA100C3 PO; -GABA-282 PO; +GABA300C3 PO
== END ==
LOC: M SFHCPLAZ 11:55
PROVIDERS: ATTEND Nurse Practitioner Family
DX: D64.9 Anemia, unspecified (principal); I50.32 Chronic diastolic (congestive) heart failure; Z53.8 Procedure and treatment not carried out for other reasons

== ENCOUNTER → 2016-07-11 | Outpatient (CLI) | payer MEDICARE ==
[~2016-07-11] MED LIST changes: -COLA100C PO; +COLA100C3 PO; +GABA-282 PO; -GABA300C3 PO; +NORCOTAB PO
--- NOTE | 2016-07-11 11:13 | REP ---
Whole body PET CT scan: Whole body imaging is performed from skull base to the upper thighs. Comparisons are the prior PET CT scan dated 07/14/[address] of the chest dated 07/04 2015 per say is performed for recurrence/progression of non-small cell lung carcinoma. Scanning is performed from the skull base to the upper thighs. Neck and supraclavicular areas: There are no hypermetabolic foci. This is unchanged. Chest: There is a linear band of uptake in the left upper lobe as previously demonstrating a maximal standard uptake value of 2.7 (previously 6.0), compatible with postradiation fibrosis. No enlarging mass or nodule is identified. There is a mediastinal precarinal azygos node measuring 13 mm short axis, unchanged in size. The standard uptake value of this node today is 1.3 (previously 3.5). Abdomen, pelvis and upper thighs: There are no hypermetabolic foci. Specifically no adrenal or hepatic foci are identified. There is nonspecific bowel uptake. Impression: The uptake in the left upper chest has decreased from the prior study. There is no enlarging mass or nodule. Findings in this location are compatible with postradiation fibrosis. The uptake in the mildly enlarged mediastinal azygos node has decreased. There is no size increase of this node. There are no hypermetabolic foci otherwise. The study is performed with 19.0 mCi of F 18 FDG. Signed by Zechariah Reina MD 07/11/2016 11:04 A
== END ==
LOC: M RAD 07:15
PROVIDERS: ATTEND Internal Medicine Medical Oncology
DX: Z85.118 Personal history of other malignant neoplasm of bronchus and lung (principal); R59.9 Enlarged lymph nodes, unspecified; J70.1 Chronic and other pulmonary manifestations due to radiation; Z92.3 Personal history of irradiation; Z79.899 Other long term (current) drug therapy
CPT/HCPCS: 78815; A9552

== ENCOUNTER → 2016-07-19 | Outpatient (REF) | payer MEDICARE ==
[~2016-07-19] MED LIST changes: -NORCOTAB PO
[2016-07-21 00:06] LABS: FREE KAPPA LIGHT CHAINS SERUM 57.72 mg/L (3.30-19.40); FREE LAMBDA LIGHT CHAINS SERUM 45.14 mg/L (5.71-26.30); KAPPA/LAMBDA RATIO SERUM 1.28 (0.26-1.65)
== END ==
LOC: M LAB REF 11:13
PROVIDERS: ATTEND Internal Medicine Medical Oncology
DX: Z08 Encounter for follow-up examination after completed treatment for malignant neoplasm (principal); D47.2 Monoclonal gammopathy; D64.9 Anemia, unspecified; Z85.118 Personal history of other malignant neoplasm of bronchus and lung

== ENCOUNTER 2016-07-25 00:27 | Emergency (ER) | payer MEDICARE ==
[~2016-07-25] VITALS: Ht 163.8 cm; Wt 94.3 kg
[2016-07-25] MEDS ORDERED: METOCLOPRAMIDE INJ 10MG/2ML VIAL (J2765) IV ONE (02:00)
[2016-07-25] MEDS ORDERED: NS 500 ML IV ONE (02:00)
[2016-07-25 02:08] LABS: BASO % 0.3 % (0.0-1.0); EOS # 0.2 K/mm3 (0.0-0.50); EOS % 2.3 % (0.0-3.0); LARGE UNSTAINED CELL # 0.1 K/mm3 (0.0-0.4); LARGE UNSTAINED CELL % 1.5 % (0.0-4.0); MEAN CORPUSCULAR HEMOGLOBIN 28.2 pg (27.0-33.0); MEAN CORPUSCULAR HGB CONC 32.5 g/dl (32.0-36.5); MEAN CORPUSCULAR VOLUME 86.7 fl (80.0-96.0); MONO # 0.5 K/mm3 (0.0-0.8); MONO % 6.3 % (0.0-5.0); NEUTROPHILS % 76.6 % (36.0-66.0); PLATELET COUNT, AUTOMATED 257 k/mm3 (150-450); RED CELL DISTRIBUTION WIDTH 15.8 % (11.5-14.5); WHITE BLOOD COUNT 7.8 K/mm3 (4.0-10.0)
[2016-07-25] MEDS: MORPHINE 4 MG/ML 1ML SYRINGE IV PRN ×2 (02:09→04:27)
[2016-07-25] MEDS ORDERED: RANI15TA PO (02:35)
[2016-07-25 02:40] LABS: ALBUMIN 2.8 GM/DL (3.2-5.2); ALBUMIN/GLOBULIN RATIO 0.56 (1.00-1.93); ALKALINE PHOSPHATASE 97 U/L (45-117); ALT/SGPT 24 U/L (12-78); ANION GAP 6 MEQ/L (8-16); AST/SGOT 20 U/L (15-37); BILIRUBIN,DIRECT < 0.1 MG/DL (0.0-0.2); BILIRUBIN,TOTAL 0.2 MG/DL (0.2-1.0); BLOOD UREA NITROGEN 23 MG/DL (7-18); CALCIUM LEVEL 9.1 MG/DL (8.8-10.2); CARBON DIOXIDE LEVEL 30 MEQ/L (21-32); CHLORIDE LEVEL 102 MEQ/L (98-107); CREATININE FOR GFR 0.85 MG/DL (0.55-1.02); GLOMERULAR FILTRATION RATE > 60.0 (>39); GLUCOSE, FASTING 162 MG/DL (83-110); POTASSIUM SERUM 3.9 MEQ/L (3.5-5.1); SODIUM LEVEL 138 MEQ/L (136-145); TOTAL PROTEIN 7.8 GM/DL (6.4-8.2)
--- NOTE | 2016-07-25 04:50 | REPUSA ---
CLINICAL HISTORY: RUQ pain. TECHNIQUE: Realtime sonographic images were obtained in multiple projections. COMMENTS: The visualized liver is of uniform echo texture without evidence of mass or defect. There is no intra or extrahepatic biliary ductal dilatation. The common bile duct measures 3.7 mm. The gallbladder is physiologically distended without evidence of calculi. The gallbladder wall is not thickened and ther e is no pericholecystic fluid. The visualized portions of the pancreas are unremarkable. The right kidney measures 12.1x5.9x5.6 cm. IMPRESSION: Normal study. No evidence of cholelithiasis or cholecystitis. Thank you for your kind referral of this patient.
[2016-07-25] MEDS ORDERED: NORCO, ANEXSIA 5/325MG TABLET (HYDROcodone/ACETAMINOPHEN) PO ONE (06:15)
[2016-07-25] MEDS ORDERED: NORCOTAB PO (06:16)
[2016-07-25 06:19] VITALS: BP 130/60
== END 2016-07-25 06:43 | disposition home or self-care (01) ==
LOC: EDBD 00:27 → M ED 03:19
DX: R10.31 Right lower quadrant pain (principal); R11.0 Nausea; E11.9 Type 2 diabetes mellitus without complications; E03.9 Hypothyroidism, unspecified; I25.10 Atherosclerotic heart disease of native coronary artery without angina pectoris; Z79.899 Other long term (current) drug therapy; Z79.4 Long term (current) use of insulin; Z79.82 Long term (current) use of aspirin; Z88.0 Allergy status to penicillin; Z88.1 Allergy status to other antibiotic agents; Z88.2 Allergy status to sulfonamides; Z88.8 Allergy status to other drugs, medicaments and biological substances; Z87.891 Personal history of nicotine dependence
CPT/HCPCS: 76705; 80048; 80076; 81001; 83690; 85025; 87040; 87086; 93041; 96361; 96374; 96375; 96376; 99284; J2765

== ENCOUNTER → 2016-08-02 | Outpatient (REF) | payer MEDICARE ==
[~2016-08-02] MED LIST changes: +NORCOTAB PO
== END ==
LOC: M SFHCPLAZ 11:41
PROVIDERS: ATTEND Nurse Practitioner Family
DX: E11.21 Type 2 diabetes mellitus with diabetic nephropathy (principal)

== ENCOUNTER → 2016-08-03 | Outpatient (CLI) | payer MEDICARE ==
[2016-08-03 10:12] LABS: ALBUMIN 3.2 GM/DL (3.2-5.2); ANION GAP 8 MEQ/L (8-16); BLOOD UREA NITROGEN 19 MG/DL (7-18); CALCIUM LEVEL 8.3 MG/DL (8.8-10.2); CARBON DIOXIDE LEVEL 27 MEQ/L (21-32); CHLORIDE LEVEL 102 MEQ/L (98-107); CREATININE FOR GFR 0.91 MG/DL (0.55-1.02); GLOMERULAR FILTRATION RATE > 60.0 (>39); GLUCOSE, FASTING 116 MG/DL (83-110); PHOSPHORUS LEVEL 3.6 MG/DL (2.5-4.9); POTASSIUM SERUM 4.1 MEQ/L (3.5-5.1); SODIUM LEVEL 137 MEQ/L (136-145)
== END ==
LOC: M WUC 08:23
PROVIDERS: ATTEND Physician Assistant
DX: I50.32 Chronic diastolic (congestive) heart failure (principal)

== ENCOUNTER → 2016-08-03 | Outpatient (CLI) | payer MEDICARE ==
[2016-08-03 09:50] LABS: ALBUMIN 3.1 GM/DL (3.2-5.2); ANION GAP 8 MEQ/L (8-16); BLOOD UREA NITROGEN 18 MG/DL (7-18); CALCIUM LEVEL 8.5 MG/DL (8.8-10.2); CARBON DIOXIDE LEVEL 28 MEQ/L (21-32); CHLORIDE LEVEL 100 MEQ/L (98-107); CREATININE FOR GFR 0.93 MG/DL (0.55-1.02); FREE T4 1.28 NG/DL (0.76-1.46); GLOMERULAR FILTRATION RATE > 60.0 (>39); GLUCOSE, FASTING 116 MG/DL (83-110); PHOSPHORUS LEVEL 3.7 MG/DL (2.5-4.9); POTASSIUM SERUM 4.1 MEQ/L (3.5-5.1); SODIUM LEVEL 136 MEQ/L (136-145)
== END ==
LOC: M WUC 08:18
PROVIDERS: ATTEND Nurse Practitioner Family
DX: E03.9 Hypothyroidism, unspecified (principal); E11.21 Type 2 diabetes mellitus with diabetic nephropathy; I50.32 Chronic diastolic (congestive) heart failure

== ENCOUNTER → 2016-08-23 | Outpatient (CLI) | payer MEDICARE ==
[2016-08-23 10:51] LABS: ALBUMIN 3.2 GM/DL (3.2-5.2); CALCIUM LEVEL 8.6 MG/DL (8.8-10.2); CREATININE FOR GFR 1.09 MG/DL (0.55-1.02); PHOSPHORUS LEVEL 4.2 MG/DL (2.5-4.9); POTASSIUM SERUM 4.4 MEQ/L (3.5-5.1)
== END ==
LOC: M WUC 09:11
PROVIDERS: ATTEND Physician Assistant
DX: I50.32 Chronic diastolic (congestive) heart failure (principal)

== ENCOUNTER → 2016-10-04 | Outpatient (CLI) | payer MEDICARE ==
[~2016-10-04] MED LIST changes: +ATIV1TAB7 PO; -ATOR1TAB18 PO; +ATOR80TA59 PO; -COLA100C3 PO; +COLA100C5 PO; -MACR100C3 PO; +MACR100C43 PO; -PRIM250T5 PO; +PRIM250T8 PO; -PROA1AER INH; +PROAAER10 INH; +SENN1TAB10 PO; -SENN8.6T10 PO; -VITA100037 PO; +VITA100067 PO
[2016-10-04 13:18] LABS: FREE T4 1.42 NG/DL (0.76-1.46)
== END ==
LOC: M WUC 09:34
PROVIDERS: ATTEND Family Medicine
DX: E03.9 Hypothyroidism, unspecified (principal)

== ENCOUNTER → 2016-10-04 | Outpatient (CLI) | payer MEDICARE ==
[2016-10-04 13:23] LABS: ALBUMIN 3.2 GM/DL (3.2-5.2); ALBUMIN/GLOBULIN RATIO 0.76 (1.00-1.93); BILIRUBIN,TOTAL 0.3 MG/DL (0.2-1.0); CALCIUM LEVEL 8.8 MG/DL (8.8-10.2); CREATININE FOR GFR 1.03 MG/DL (0.55-1.02); FREE T4 1.42 NG/DL (0.76-1.46); GLOMERULAR FILTRATION RATE 55.3 (>39); POTASSIUM SERUM 4.7 MEQ/L (3.5-5.1); TOTAL PROTEIN 7.4 GM/DL (6.4-8.2)
== END ==
LOC: M WUC 09:44
PROVIDERS: ATTEND Nurse Practitioner Family
DX: I50.32 Chronic diastolic (congestive) heart failure (principal); E03.9 Hypothyroidism, unspecified

== ENCOUNTER → 2016-10-04 | Outpatient (CLI) | payer MEDICARE ==
[2016-10-04 13:12] LABS: ALBUMIN 3.2 GM/DL (3.2-5.2); CALCIUM LEVEL 8.7 MG/DL (8.8-10.2); CREATININE FOR GFR 0.99 MG/DL (0.55-1.02); GLOMERULAR FILTRATION RATE 57.9 (>39); MAGNESIUM LEVEL 2.7 MG/DL (1.8-2.4); PHOSPHORUS LEVEL 4.9 MG/DL (2.5-4.9); POTASSIUM SERUM 4.7 MEQ/L (3.5-5.1)
== END ==
LOC: M WUC 09:39
PROVIDERS: ATTEND Physician Assistant
DX: I50.32 Chronic diastolic (congestive) heart failure (principal)

== ENCOUNTER → 2016-12-14 | Outpatient (CLI) | payer MEDICARE ==
[2016-12-14 13:09] LABS: ALBUMIN 3.2 GM/DL (3.2-5.2); ALBUMIN/GLOBULIN RATIO 0.8 (1.00-1.93); BILIRUBIN,TOTAL 0.3 MG/DL (0.2-1.0); CALCIUM LEVEL 8.9 MG/DL (8.8-10.2); CREATININE FOR GFR 0.96 MG/DL (0.55-1.02); MAGNESIUM LEVEL 2.4 MG/DL (1.8-2.4); POTASSIUM SERUM 4.5 MEQ/L (3.5-5.1); TOTAL PROTEIN 7.2 GM/DL (6.4-8.2)
== END ==
LOC: M WUC 09:35
PROVIDERS: ATTEND Physician Assistant
DX: I50.32 Chronic diastolic (congestive) heart failure (principal); I48.0 Paroxysmal atrial fibrillation

== ENCOUNTER → 2016-12-14 | Outpatient (CLI) | payer MEDICARE ==
[2016-12-14 12:43] LABS: MEAN CORPUSCULAR HEMOGLOBIN 30.1 pg (27.0-33.0); MEAN CORPUSCULAR HGB CONC 33.1 g/dl (32.0-36.5); RED CELL DISTRIBUTION WIDTH 15.2 % (11.5-14.5); RETIC HEMOGLOBIN CONTENT CHr 31.6 PG (24-36); RETICULOCYTE % 3.5 % (0.5-1.5); WHITE BLOOD COUNT 6.2 K/mm3 (4.0-10.0)
[2016-12-14 13:02] LABS: ALBUMIN 3.3 GM/DL (3.2-5.2); ALBUMIN/GLOBULIN RATIO 0.8 (1.00-1.93); BILIRUBIN,TOTAL 0.3 MG/DL (0.2-1.0); CALCIUM LEVEL 9.1 MG/DL (8.8-10.2); CREATININE FOR GFR 0.96 MG/DL (0.55-1.02); PERCENT SATURATION 21.5 % (13.2-45.0); POTASSIUM SERUM 4.2 MEQ/L (3.5-5.1); TOTAL PROTEIN 7.4 GM/DL (6.4-8.2)
== END ==
LOC: M WUC 09:38
PROVIDERS: ATTEND Family Medicine
DX: E78.5 Hyperlipidemia, unspecified (principal); E11.21 Type 2 diabetes mellitus with diabetic nephropathy; N18.9 Chronic kidney disease, unspecified; D63.1 Anemia in chronic kidney disease; I50.32 Chronic diastolic (congestive) heart failure; I48.0 Paroxysmal atrial fibrillation

== ENCOUNTER → 2016-12-19 | Outpatient (CLI) | payer MEDICARE ==
--- NOTE | 2016-12-20 05:58 | RADONC ---
RADIATION ONCOLOGY FOLLOWUP NOTE DATE: 12/19/2016 CHART NUMBER: [id number]. DIAGNOSIS: Lung cancer. STAGE: IA, [id number]. ECOG PERFORMANCE STATUS: 2. FOLLOWUP NOTE: Ms. 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 The patient presents today reporting that she is doing quite well with no complaints at this time related to her radiation therapy or disease. She continues to have physical limitations and remains in a wheelchair. This is unchanged. She continues to have shortness of breath, which is not increased. She has weakness in arms and legs. The patient's review of systems is positive for the above, but is otherwise noncontributory. She denies nausea, vomiting, fevers, chills, night sweats, diplopia, headaches, anxiety, depression, anorexia, weight loss, visual disturbances, chest pain, urinary or bowel difficulties, bone pain or neurological problems. PHYSICAL EXAMINATION: The patient is a chronically ill-appearing white female who is presenting in a wheelchair. PHYSICAL EXAMINATION: The patient is a well-developed, well-nourished white female in no acute distress. HEENT exam is normocephalic, atraumatic. Extraocular movements are intact. There is no palpable cervical, supraclavicular, infraclavicular, axillary, or inguinal lymphadenopathy present. Lungs are clear to auscultation and percussion. Heart has a regular rate and rhythm. Abdomen is benign with no hepatosplenomegaly, masses, or tenderness. Skeletal examination reveals no tenderness to pressure or percussion of the bony skeleton. Extremities reveal no clubbing, cyanosis, or edema. Neurologic exam is grossly intact, as is the remainder of the physical examination. ASSESSMENT: The patient is clinically stable at this time and will be seen by us again in 6 months for further followup. She will also continue to be followed by her other physicians as well. I have ordered a CT scan to be done of the chest in January. She will continue her close followup with her medical oncologist, Dr. Solorzano as well. cc: MD Lloyd Francisco MD David Rechlin, DO [facility] Suhas Quesada MD [facility]
== END ==
LOC: M ONCR 09:00
PROVIDERS: ATTEND Radiology Radiation Oncology
DX: C34.12 Malignant neoplasm of upper lobe, left bronchus or lung (principal)

== ENCOUNTER → 2016-12-20 | Outpatient (CLI) | payer MEDICARE ==
--- NOTE | 2016-12-20 11:24 | REP ---
Clinical: Pain. History of lung cancer. Technique: PA and lateral. Comparison: 06/18/2016. Findings: Postsurgical and diffuse pleuroparenchymal changes involving the left hemithorax including volume loss, tenting of the diaphragmatic surface and vague opacity in the mid lung zone remain relatively stable. The right hemithorax demonstrates chronic interstitial changes without acute process. No effusion. No consolidation. No pneumothorax. Skeletal structures stable. Impression: Chronic stable changes when compared to prior examination. No obvious acute process. Signed by Aki Robert MD 12/20/2016 11:15 A
== END ==
LOC: M WUC 11:04
PROVIDERS: ATTEND Physician Assistant
DX: I48.0 Paroxysmal atrial fibrillation (principal)

== ENCOUNTER → 2016-12-26 | Outpatient (CLI) | payer MEDICARE ==
--- NOTE | 2016-12-26 12:03 | REP ---
CAROTID ULTRASOUND: Real-time ultrasound evaluation and duplex Doppler interrogation of the extracranial carotid vasculature is performed. There is moderate plaquing and narrowing in both carotid bulbs extending into the internal and external carotid arteries. Luminal narrowing is less than 50%. There is no evidence of hemodynamically significant stenosis of either internal carotid artery. However, the proximal left internal carotid artery is somewhat obscured by calcific plaque in underlying stenosis at this location cannot totally be excluded. Normal flow velocities are seen. The vertebral arteries demonstrate normal direction of flow. RIGHT LEFT Peak systolic velocity ICA 84.0 cm/s 102 cm/s End diastolic velocity ICA 20.1 cm/s 22 cm/s Peak systolic velocity CCA 59 cm/s 181 cm/s Peak systolic velocity ECA 57 cm/s 61.6 cm/s ICA/CCA ratio 1.42 0.56 IMPRESSION: Bilateral luminal narrowing of the internal carotid arteries less than 50%. Proximal left internal carotid artery not well evaluated due to shadowing from significant calcific plaque, cannot rule out stenosis at this location. Consider MRA or CTA carotid arteries. Otherwise, no evidence of hemodynamically significant stenosis. Signed by Zechariah Reed MD 12/26/2016 11:55 A
== END ==
LOC: M RAD 11:11
PROVIDERS: ATTEND Surgery
DX: I65.23 Occlusion and stenosis of bilateral carotid arteries (principal)

== ENCOUNTER → 2017-01-14 | Outpatient (CLI) | payer MEDICARE ==
[~2017-01-14] MED LIST changes: +ISOVUE-370 76% 100ML VIAL (Q9967) As Ordered ONE
--- NOTE | 2017-01-14 11:23 | REP ---
CT CHEST WITH IV CONTRAST: HISTORY: Lung cancer. Comparison chest CT study January 02, 2016. CT CONTRAST DOSE: 75 mL of intravenous Isovue 370. CT FINDINGS: There is fairly extensive volume loss and fibrosis with air bronchograms and bronchiectasis in the left upper lobe consistent with postradiation change. The patient is status post left thoracotomy and partial pneumonectomy as well. These findings are essentially unchanged. The right middle lobe opacities seen previously on January 02, 2016 have regressed in the interval since that prior exam although they are not completely resolved. The small pleural opacity in the minor fissure is unchanged. The previous study showed a 3 mm nodule in the right lower lobe posterolaterally. This has increased in size to 13 mm and has irregular margins. It is suspicious for primary versus metastatic malignancy. This is seen on today's study on image 55 of 109 in series 201. No other new pulmonary nodule is appreciated. There are post thoracotomy changes in the left rib cage. No new bony destructive lesion is seen. No adrenal lesion is observed. No hilar or mediastinal mass or adenopathy is seen. Vascular calcifications again noted. No pleural effusion. IMPRESSION: Stable post-treatment changes on the left. Enlarging nodule with irregular somewhat spiculated margins in the right lower lobe 13 mm in diameter. This is suspicious for primary or metastatic malignancy. Consider repeat PET/CT versus histologic sampling. Signed by Arturo Greene MD 01/14/2017 01:19 P
== END ==
LOC: M RAD 09:22
PROVIDERS: ATTEND Radiology Radiation Oncology
DX: C34.90 Malignant neoplasm of unspecified part of unspecified bronchus or lung (principal)
CPT/HCPCS: 71260; Q9967

== ENCOUNTER → 2017-01-22 | Outpatient (CLI) | payer MEDICARE ==
[~2017-01-22] MED LIST changes: -ISOVUE-370 76% 100ML VIAL (Q9967) As Ordered ONE
== END ==
LOC: M LAB 11:30
PROVIDERS: ATTEND Radiology Radiation Oncology
DX: Z01.812 Encounter for preprocedural laboratory examination (principal)

== ENCOUNTER → 2017-01-25 | Outpatient (REF) | payer MEDICARE ==
[2017-01-25 15:12] LABS: TOTAL PROTEIN 7.6 GM/DL (6.4-8.2)
[2017-01-27 00:06] LABS: FREE LAMBDA LIGHT CHAINS SERUM 39.5 mg/L (5.7-26.3); KAPPA/LAMBDA RATIO SERUM 1.42 (0.26-1.65)
[2017-01-29 11:34] LABS: ALBUMIN 3.72 GM/DL (3.29-5.55); GAMMA GLOBULIN % 17.9 % (11.1-18.8)
== END ==
LOC: M LAB REF 13:14
PROVIDERS: ATTEND Internal Medicine Medical Oncology
DX: D47.2 Monoclonal gammopathy (principal)

== ENCOUNTER → 2017-02-14 | Outpatient (CLI) | payer MEDICARE ==
--- NOTE | 2017-02-19 06:44 | RADONC ---
RADIATION ONCOLOGY PROGRESS NOTE DATE: 02/14/2017 CHART NUMBER: [id number] DIAGNOSIS: Right lower lobe lung cancer. STAGE: I A, [id number]. ECOG PERFORMANCE STATUS: 2. PROGRESS NOTE Ms. Segundo is a delightful 76-year-old white female with the diagnosis of what appears to be a stage I A, [id number], right lower lobe lung cancer who is presenting to us today for discussion of her pathology findings and treatment options. Since we saw her on 01/22/2017, the patient underwent a right lower lobe lung CT guided core biopsy. Pathology revealed a poorly differentiated squamous cell carcinoma. The tumor measures only 1.3 cm. There were no other sites of known disease. The patient's review of systems is positive for her physical limitations, but otherwise is generally stable. I had a lengthy discussion with this patient with regards to the possibilities of SBRT as a therapeutic option. We do not provide that service here, but it is available in [place]. I have recommended that she consult with the radiation oncologist in [place] and obtain their expert opinion. Should she decide against SBRT, we could treat this with 3-D conformal therapy, although I believe the results would be better with SBRT if indeed she is a candidate for that treatment. Of course, I will defer her candidacy to the physicians at [facility]. In summary, I have set this patient up for consultation at [facility] in [place]. We are sending all records down to [facility] for evaluation. Should she change her mind and wish to be treated here, we would consider that as a possible option, although not the preferable one. cc: MD Rosalba Landrum MD Robert Johnson, MD Joseph Wetterhahn, MD
== END ==
LOC: M ONCR 09:01
PROVIDERS: ATTEND Radiology Radiation Oncology
DX: C34.31 Malignant neoplasm of lower lobe, right bronchus or lung (principal)

== ENCOUNTER → 2017-02-20 | Outpatient (CLI) | payer MEDICARE ==
--- NOTE | 2017-02-21 11:08 | REP ---
PET/CT: HISTORY: Restaging lung carcinoma. Status post right lung biopsy February 07, 2017. COMPARISONS: Comparison PET-CT studies are dated July 14, 2015 and July 11, 2016. Comparison CT study of the chest is from January 14, 2017. Needle biopsy result is poorly differentiated squamous cell carcinoma. TECHNIQUE: 50 minutes following the intravenous injection of a 9.7 mCi dose of F-18 FDG, three-dimensional PET scintigraphy is acquired from the skull base to the proximal thighs. Triplanar noncontrast CT scanning is acquired through the same anatomic range for attenuation correction, and image registration with scan parameters optimized to minimize radiation exposure to the patient. PET scintigraphy and CT datasets were fused and displayed on a workstation with multiplanar and projection display capability. PET/CT FINDINGS: The known right lower lobe lung nodule is seen to be hypermetabolic. This has maximum standard uptake value of 11.8. It measures 16 mm in diameter on today's accompanying chest CT. Post radiation fibrosis changes are seen on CT and diffuse pattern of mildly hypermetabolic uptake is seen on PET scintigraphy images in the distribution of the previously treated left upper lobe. Maximum standard uptake value ranging up to 4.8. This is essentially unchanged. No discernible FDG accumulation is seen elsewhere in the lungs. The recently noted right middle lobe opacities appear a little less prominent on accompanying CT day and there is no discernible FDG accumulation. No hilar or mediastinal hypermetabolic uptake is seen. Head and neck soft tissues are unremarkable. Normal variant skeletal muscle uptake at the shoulders. No abnormal hypermetabolic uptake is seen in the abdomen or pelvis. IMPRESSION: The recently biopsied right lower lobe nodule is quite hypermetabolic. There is no scintigraphic evidence to suggest metastatic disease. Post-treatment changes are noted in the left upper lobe. No other abnormal focus of hypermetabolic uptake. Signed by Arturo Greene MD 02/21/2017 11:25 A
== END ==
LOC: M PLARAD 09:29
PROVIDERS: ATTEND Radiology Radiation Oncology
DX: C34.31 Malignant neoplasm of lower lobe, right bronchus or lung (principal)
CPT/HCPCS: 78815; A9552

== ENCOUNTER → 2017-04-22 | Outpatient (CLI) | payer MEDICARE ==
[~2017-04-22] MED LIST changes: -*BLDWK7; -*MAMMOGRAM; -/AMIO20TA PO; -ADVAIR200 INHALATION; -ALBUTEROL INHALATION; -ALDA25TA2; -ALDA25TA2 PO; -ANTIV 25 PO; -ARTISOL2 OU; -ASP325; -ASPI325T PO; -ATIV1TAB7 PO; -ATOR80TA59 PO; -AVELOX PO; -BENA25CA2 PO; -BENA25TA4 PO; -BENEPOW7 PO; -CAHNTIXC PO; -CEFTIN250 PO; -CHAN0.5P PO; -CICL0.776 EX; -CLARITIN10 PO; -COLA100C2 PO; -COLA100C5 PO; -COLACE; -COMBIVENT PO; -DOXYCYC100; -DOXYCYC100 PO; -DRISDOL50 PO; -DUONSOL; -DUONSOL INHALATION; -DYAZIDE; -DYAZIDE PO; -FLUT1SPR2; -FURO40TA2 PO; -GABA-282 PO; -HABITROL14 TOPICAL; -HABITROL2 TOPICAL; -HABITROL21 TOPICAL; -INSUDET SC; +ISOVUE-370 76% 100ML VIAL (Q9967) As Ordered; -LANO0.1211 PO; -LASI20TA PO; -LASI80TA; -LEVO150T7 PO; -LEVOXYL25 MCG PO; -LIPI80TA; -LIPITOR40 PO; -LIPITOR80; -LIPITOR80 PO; -LISI10TA4 PO; -LISINOPR5 PO; -MACR100C43 PO; -MAXZIDE PO; -MAXZIDE25 PO; -MECL-86 PO; -MOTRIN600 PO; -MUCINEX PO; -MYSO50TA5 PO; -MYSOLINE50 PO; -NASACORTAQ NASALLY; -NASONEX NASAL; -NICORETTE PO; -NICOTROLIN; -NORCOTAB PO; -NORVASC5 PO; -OSEL75CA2 PO; -OXYGEN NC; -PACE200T PO; -PERC5TAB8; -PRED20TA PO; -PREDNISO10 PO; -PRIM250T8 PO; -PRIM50TA6 PO; -PROAAER10 INH; -PROVENTILI INHALE; -PROVENTILI PO; -PROZAC20; -RANI150T PO; -RANI15TA PO; -REME30TA PO; -REMERON; -REMERON PO; -REMERON15 PO; -SENN1TAB10 PO; -SENO8.6T5; -SENO8.6T5 PO; -SENOKOTTAB; -SIMV80TA PO; -SPACER -; -SPIR25TA2 PO; -SPIRIVA; -SYNT150T PO; -SYNTHROID1 PO; -TYLE325T5 PO; -VITA100066 PO; -VITA100067 PO; -VITAMIN B COMPLE1; -VITAMIN D50000 UNT; -VITAMIN D50000 UNT PO; -ZETIA PO; -ZITHROZPAK PO; -ZOCOR80 PO; -ZOLOFT50; -ZYBAN150; -[UNRECOGNIZED DRUG - OTHER]; -antivert PO
== END ==
LOC: M RAD 07:33
DX: C34.90 Malignant neoplasm of unspecified part of unspecified bronchus or lung (principal)
CPT/HCPCS: Q9967

== ENCOUNTER → 2017-06-19 | Outpatient (CLI) | payer MEDICARE | LOC: M ONCR 09:09 | DX: C34.12 Malignant neoplasm of upper lobe, left bronchus or lung (principal); C34.31 Malignant neoplasm of lower lobe, right bronchus or lung | CPT/HCPCS: G0463 ==

== ENCOUNTER → 2017-06-19 | Outpatient (CLI) | payer MEDICARE ==
[2017-06-21 15:19] LABS: PHENOBARBITAL (PRIMIDONE) 17 ug/mL (15-40); PRIMIDONE, SERUM 7.7 ug/mL (5.0-12.0)
== END ==
LOC: M LAB 10:16
DX: G25.0 Essential tremor (principal)

== ENCOUNTER → 2017-06-19 | Outpatient (CLI) | payer MEDICARE ==
[2017-06-19 12:31] LABS: ALBUMIN 3.3 GM/DL (3.2-5.2); ALBUMIN/GLOBULIN RATIO 0.79 (1.00-1.93); ALKALINE PHOSPHATASE 119 U/L (45-117); ALT/SGPT 27 U/L (12-78); ANION GAP 11 MEQ/L (8-16); AST/SGOT 24 U/L (7-37); BILIRUBIN,TOTAL 0.3 MG/DL (0.2-1.0); BLOOD UREA NITROGEN 28 MG/DL (7-18); CALCIUM LEVEL 8.6 MG/DL (8.8-10.2); CARBON DIOXIDE LEVEL 25 MEQ/L (21-32); CHLORIDE LEVEL 108 MEQ/L (98-107); CREATININE FOR GFR 0.87 MG/DL (0.55-1.30); GLOMERULAR FILTRATION RATE > 60.0 (>39); GLUCOSE, FASTING 83 MG/DL (70-100); MAGNESIUM LEVEL 2.1 MG/DL (1.8-2.4); POTASSIUM SERUM 3.8 MEQ/L (3.5-5.1); SODIUM LEVEL 144 MEQ/L (136-145); THYROID STIMULATING HORMONE 0.962 uIU/ML (0.358-3.740); TOTAL PROTEIN 7.5 GM/DL (6.4-8.2)
== END ==
LOC: M LAB 10:13
DX: I48.0 Paroxysmal atrial fibrillation (principal)

== ENCOUNTER → 2017-06-19 | Outpatient (CLI) | payer MEDICARE ==
[2017-06-19 11:06] LABS: HEMATOCRIT 28.2 % (36.0-47.0); HEMOGLOBIN 9.1 g/dl (12.0-16.0); MEAN CORPUSCULAR HEMOGLOBIN 29.9 pg (27.0-33.0); MEAN CORPUSCULAR HGB CONC 32.3 g/dl (32.0-36.5); MEAN CORPUSCULAR VOLUME 92.8 fl (80.0-96.0); PLATELET COUNT, AUTOMATED 261 10^3/uL (150-450); RED BLOOD COUNT 3.04 10^6/uL (4.00-5.40); RED CELL DISTRIBUTION WIDTH 14.5 % (11.5-14.5); WHITE BLOOD COUNT 7.8 10^3/uL (4.0-10.0)
[2017-06-19 11:26] LABS: ESTIMATED AVERAGE GLUCOSE 85 MG/DL (60-110); HEMOGLOBIN A1c 4.6 %
[2017-06-19 13:14] LABS: ALBUMIN 3.3 GM/DL (3.2-5.2); ALBUMIN/GLOBULIN RATIO 0.79 (1.00-1.93); ALKALINE PHOSPHATASE 114 U/L (45-117); ALT/SGPT 28 U/L (12-78); ANION GAP 13 MEQ/L (8-16); AST/SGOT 26 U/L (7-37); BILIRUBIN,TOTAL 0.3 MG/DL (0.2-1.0); BLOOD UREA NITROGEN 29 MG/DL (7-18); CALCIUM LEVEL 8.5 MG/DL (8.8-10.2); CARBON DIOXIDE LEVEL 23 MEQ/L (21-32); CHLORIDE LEVEL 108 MEQ/L (98-107); CHOLESTEROL LEVEL 195 MG/DL (<200); CHOLESTEROL RISK RATIO 3.545 (<5); CREATININE FOR GFR 0.88 MG/DL (0.55-1.30); GLOMERULAR FILTRATION RATE > 60.0 (>39); GLUCOSE, FASTING 83 MG/DL (70-100); HDL CHOLESTEROL 55 MG/DL (>40); LDL CHOLESTEROL 107.6 MG/DL (<100); NON-HDL-C 140 MG/DL; POTASSIUM SERUM 3.8 MEQ/L (3.5-5.1); SODIUM LEVEL 144 MEQ/L (136-145); TOTAL PROTEIN 7.5 GM/DL (6.4-8.2); TRIGLYCERIDES LEVEL 162 MG/DL (<150)
== END ==
LOC: M LAB 10:09
DX: E78.5 Hyperlipidemia, unspecified (principal); D63.1 Anemia in chronic kidney disease; E11.21 Type 2 diabetes mellitus with diabetic nephropathy; I48.0 Paroxysmal atrial fibrillation; G25.0 Essential tremor
CPT/HCPCS: 83735

== ENCOUNTER 2017-07-24 19:15 | Inpatient (IN) | payer MEDICARE ==
[2017-07-24 20:25] LABS: INR 1.14; PROTHROMBIN TIME 14.8 SECONDS (12.4-14.5)
[2017-07-24 20:26] LABS: PARTIAL THROMBOPLASTIN TIME 43.5 SECONDS (26.8-37.9)
[2017-07-24 20:34] LABS: ALBUMIN/GLOBULIN RATIO 0.41 (1.00-1.93); ALKALINE PHOSPHATASE 81 U/L (45-117); ALT/SGPT 36 U/L (12-78); ANION GAP 10 MEQ/L (8-16); AST/SGOT 54 U/L (7-37); BILIRUBIN,DIRECT < 0.1 MG/DL (0.0-0.2); BILIRUBIN,TOTAL 0.2 MG/DL (0.2-1.0); BLOOD UREA NITROGEN 22 MG/DL (7-18); CARBON DIOXIDE LEVEL 25 MEQ/L (21-32); CHLORIDE LEVEL 102 MEQ/L (98-107); CPK CREATINE PHOSPHOKINASE 509 U/L (26-192); GLOMERULAR FILTRATION RATE > 60.0 (>39); GLUCOSE, FASTING 125 MG/DL (70-100); POTASSIUM SERUM 3.8 MEQ/L (3.5-5.1); SODIUM LEVEL 137 MEQ/L (136-145); TOTAL PROTEIN 6.9 GM/DL (6.4-8.2); TROPONIN I 0.02 NG/ML (< 0.10)
[2017-07-24 20:35] LABS: CK-MB VALUE MASS 2.6 NG/ML (<3.6); MB/CK RELATIVE INDEX 0.51 (< OR =4)
[2017-07-24] MEDS: LEVEMIR (INSULIN DETEMIR) 1 UNITS/0.01ML SC (21:00)
[2017-07-24 21:01] LABS: MEAN CORPUSCULAR HGB CONC 31.4 g/dl (32.0-36.5); MEAN CORPUSCULAR VOLUME 89.4 fl (80.0-96.0); PLATELET COUNT, AUTOMATED 381 10^3/uL (150-450); RED BLOOD COUNT 2.46 10^6/uL (4.00-5.40); RED CELL DISTRIBUTION WIDTH 16.8 % (11.5-14.5); WHITE BLOOD COUNT 7.4 10^3/uL (4.0-10.0)
[2017-07-24 21:05] LABS: HEMOGLOBIN 6.9 g/dl (12.0-15.5)
[2017-07-24] MEDS ORDERED: ONDANSETRON 4MG/2ML VIAL (J2405) IV (23:00)
[2017-07-24] MEDS: PANTOPRAZOLE 40MG INJ (PROTONIX) (C9113) IV (23:13)
[2017-07-24] MEDS ORDERED: MECLIZINE 25 MG TABLET PO (23:15)
[2017-07-24] MEDS ORDERED: POLYVINYL ALCOHOL OPHTH SOLN 15 ML(LIQUITEARS) OU (23:15)
[2017-07-24 23:29] LABS: IMMEDIATE SPIN CROSSMATCH 1 1
[2017-07-24 23:51] LABS: FERRITIN 255 NG/ML (8-252); IRON (FE) 43 UG/DL (50-170); PERCENT SATURATION 20.8 % (13.2-45.0); TOTAL IRON BINDING CAPACITY 207 UG/DL (250-450)
[2017-07-25 01:24] LABS: IMMEDIATE SPIN CROSSMATCH 1 2
[2017-07-25] MEDS ORDERED: SLF 3 ML SYR IV (01:30)
[2017-07-25] MEDS: SENNA 8.6 MG TAB (SENOKOT) PO ×3 (01:39→21:44)
[2017-07-25] MEDS: ATORVASTATIN 20 MG TAB PO ×2 (01:39→21:43)
[2017-07-25] MEDS: DOCUSATE SODIUM 100 MG CAP PO ×3 (01:39→21:44)
[2017-07-25 01:54] LABS: BEDSIDE GLUCOSE 138 MG/DL (83-110)
[2017-07-25] MEDS: FUROSEMIDE 40 MG/4 ML VIAL (J1940) IV (03:01)
[2017-07-25] MEDS: LEVOTHYROXINE 75MCG TABLET (0.075MG) PO (05:48)
[2017-07-25] MEDS: SLF 3 ML SYR IV ×3 (05:48→21:44)
[2017-07-25] MEDS: LEVOTHYROXINE 100MCG TABLET (0.1MG) PO (05:48)
[2017-07-25 05:51] LABS: BASO % 0.4 % (0.0-1.0); EOS # 0.3 10^3/uL (0.0-0.50); EOS % 4.7 % (0.0-3.0); HEMATOCRIT 34.1 % (36.0-47.0); IMMATURE GRANULOCYTE % 0.4 % (0-3.0); LYMPH # 0.4 10^3/uL (1.5-4.5); LYMPH % 5.6 % (24.0-44.0); MEAN CORPUSCULAR HEMOGLOBIN 28.4 pg (27.0-33.0); MEAN CORPUSCULAR HGB CONC 32.8 g/dl (32.0-36.5); MEAN CORPUSCULAR VOLUME 86.3 fl (80.0-96.0); MONO # 0.7 10^3/uL (0.0-0.8); MONO % 9.6 % (0.0-5.0); NEUTROPHILS # 5.5 10^3/uL (1.8-7.7); NEUTROPHILS % 79.3 % (36.0-66.0); PLATELET COUNT, AUTOMATED 332 10^3/uL (150-450); RED BLOOD COUNT 3.95 10^6/uL (4.00-5.40); RED CELL DISTRIBUTION WIDTH 16.1 % (11.5-14.5)
[2017-07-25 05:55] LABS: HEMOGLOBIN 11.2 g/dl (12.0-15.5)
[2017-07-25 06:22] LABS: ANION GAP 6 MEQ/L (8-16); BLOOD UREA NITROGEN 19 MG/DL (7-18); CALCIUM LEVEL 8.6 MG/DL (8.8-10.2); CARBON DIOXIDE LEVEL 26 MEQ/L (21-32); CHLORIDE LEVEL 105 MEQ/L (98-107); CREATININE FOR GFR 0.75 MG/DL (0.55-1.30); GLOMERULAR FILTRATION RATE > 60.0 (>39); GLUCOSE, FASTING 119 MG/DL (70-100); POTASSIUM SERUM 3.5 MEQ/L (3.5-5.1); SODIUM LEVEL 137 MEQ/L (136-145)
[2017-07-25] MEDS ORDERED: ALBUTEROL 90 MCG/ACT 8GM HFA INHALER INH (06:45)
[2017-07-25] MEDS: AMIODARONE 200 MG TAB (PACERONE) PO (09:31)
[2017-07-25] MEDS: SPIRONOLACTONE 25 MG TAB PO (09:31)
[2017-07-25] MEDS: PRIMIDONE 50 MG TAB PO ×2 (09:31→21:44)
[2017-07-25] MEDS: TORSEMIDE 20 MG TAB PO (09:31)
[2017-07-25] MEDS ORDERED: GLUCAGON FOR INJ 1 MG VIAL (J1610) SC (11:45)
[2017-07-25] MEDS ORDERED: GLUCOSE 4 GM CHEW TABLET PO (11:45)
[2017-07-25] MEDS ORDERED: DEXTROSE 50% 50 ML SYRINGE IV (11:45)
[2017-07-25 12:54] LABS: BEDSIDE GLUCOSE 129 MG/DL (83-110)
[2017-07-25] MEDS: PANTOPRAZOLE SODIUM 40 MG in D5W 50 ML IV ×3 (13:06→21:43)
[2017-07-25] MEDS: HumaLOG INSULIN (NovoLOG) PER UNIT SC ×3 (13:06→21:00)
[2017-07-25 17:17] LABS: BEDSIDE GLUCOSE 109 MG/DL (83-110)
[2017-07-25 18:04] LABS: HEMATOCRIT 32.7 % (36.0-47.0); HEMOGLOBIN 10.8 g/dl (12.0-15.5); MEAN CORPUSCULAR HEMOGLOBIN 28.3 pg (27.0-33.0); MEAN CORPUSCULAR VOLUME 85.6 fl (80.0-96.0); PLATELET COUNT, AUTOMATED 376 10^3/uL (150-450); RED BLOOD COUNT 3.82 10^6/uL (4.00-5.40); RED CELL DISTRIBUTION WIDTH 16.6 % (11.5-14.5); WHITE BLOOD COUNT 8.6 10^3/uL (4.0-10.0)
[2017-07-25] MEDS: GOLYTELY SOLN 4000 ML BTL PO (18:55)
[2017-07-25] MEDS: BISACODYL 5 MG TAB PO (19:48)
[2017-07-25 20:49] LABS: BEDSIDE GLUCOSE 153 MG/DL (83-110)
[2017-07-25] MEDS: LEVEMIR (INSULIN DETEMIR) 1 UNITS/0.01ML SC (21:00)
[2017-07-26] MEDS: PANTOPRAZOLE SODIUM 40 MG in D5W 50 ML IV ×5 (03:21→22:04)
[2017-07-26 05:13] LABS: BASO % 0.6 % (0.0-1.0); EOS # 0.3 10^3/uL (0.0-0.50); EOS % 4.1 % (0.0-3.0); HEMATOCRIT 31.2 % (36.0-47.0); HEMOGLOBIN 10.1 g/dl (12.0-15.5); IMMATURE GRANULOCYTE % 0.3 % (0-3.0); LYMPH # 0.5 10^3/uL (1.5-4.5); LYMPH % 7.6 % (24.0-44.0); MEAN CORPUSCULAR HEMOGLOBIN 27.9 pg (27.0-33.0); MEAN CORPUSCULAR HGB CONC 32.4 g/dl (32.0-36.5); MEAN CORPUSCULAR VOLUME 86.2 fl (80.0-96.0); MONO # 0.8 10^3/uL (0.0-0.8); MONO % 11.3 % (0.0-5.0); NEUTROPHILS # 5.4 10^3/uL (1.8-7.7); NEUTROPHILS % 76.1 % (36.0-66.0); PLATELET COUNT, AUTOMATED 332 10^3/uL (150-450); RED BLOOD COUNT 3.62 10^6/uL (4.00-5.40); RED CELL DISTRIBUTION WIDTH 16.4 % (11.5-14.5); RETIC HEMOGLOBIN EQUIVALENT 29.2 pg (24-36); RETICULOCYTE # 101.4 10^9/L (17-77); RETICULOCYTE % 2.8 % (0.5-1.5); WHITE BLOOD COUNT 7.1 10^3/uL (4.0-10.0)
[2017-07-26 05:16] LABS: REASON FOR REVIEW ANEMIA / RBC MORPH; SLIDE REVIEW Report; SOURCE PERIPHERAL SMEAR
[2017-07-26 05:33] LABS: ANION GAP 8 MEQ/L (8-16); BLOOD UREA NITROGEN 21 MG/DL (7-18); CALCIUM LEVEL 8.3 MG/DL (8.8-10.2); CARBON DIOXIDE LEVEL 27 MEQ/L (21-32); CHLORIDE LEVEL 105 MEQ/L (98-107); GLOMERULAR FILTRATION RATE > 60.0 (>39); GLUCOSE, FASTING 111 MG/DL (70-100); POTASSIUM SERUM 3.4 MEQ/L (3.5-5.1); SODIUM LEVEL 140 MEQ/L (136-145)
[2017-07-26 05:36] LABS: TOTAL PROTEIN 6.7 GM/DL (6.4-8.2)
[2017-07-26 05:36] LABS: LDH LACTATE DEHYDROGENASE 302 U/L (84-246)
[2017-07-26] MEDS: LEVOTHYROXINE 100MCG TABLET (0.1MG) PO (05:37)
[2017-07-26] MEDS: LEVOTHYROXINE 75MCG TABLET (0.075MG) PO (05:38)
[2017-07-26] MEDS: SLF 3 ML SYR IV ×2 (05:38→14:00)
[2017-07-26] MEDS: HumaLOG INSULIN (NovoLOG) PER UNIT SC ×4 (07:22→21:00)
[2017-07-26 08:05] LABS: FOLATE 23.9 NG/ML (>5.4)
[2017-07-26 08:06] LABS: VITAMIN B12 LEVEL 677 PG/ML (247-911)
[2017-07-26] MEDS: DOCUSATE SODIUM 100 MG CAP PO ×3 (09:00→21:00)
[2017-07-26] MEDS: SENNA 8.6 MG TAB (SENOKOT) PO ×3 (09:00→21:00)
[2017-07-26] MEDS: PRIMIDONE 50 MG TAB PO ×2 (09:23→22:05)
[2017-07-26] MEDS: AMIODARONE 200 MG TAB (PACERONE) PO (09:23)
[2017-07-26 11:03] LABS: CONTROL LINE HPYORI INT CTR LINE PRESENT; H PYLORI QUALITATIVE IgG DETECTED (NEGATIVE)
[2017-07-26] MEDS ORDERED: LIDOCAINE 2% INJ 100 MG/5 ML SDV (FOR ANES.) As Ordered (14:30)
[2017-07-26] MEDS ORDERED: PROPOFOL 200 MG/20 ML VIAL As Ordered ×2 (14:30→15:27)
[2017-07-26] MEDS ORDERED: fentaNYL 100 MCG/2 ML INJECTION (J3010) As Ordered (14:30)
[2017-07-26] MEDS ORDERED: PHENYLephrine HCL 500 MCG/5 ML (100MCG/ML) SYRINGE (J2370) As Ordered (14:44)
[2017-07-26] MEDS: KCL 10MEQ/100ML SWI (KRUN) 10 MEQ in APPROPRIATE DILUENT 1 EA IV ×3 (15:00→18:12)
[2017-07-26] MEDS ORDERED: ePHEDrine SULFATE 25 MG/5 ML(5MG/ML) SYRINGE As Ordered (15:06)
[2017-07-26 18:25] LABS: BEDSIDE GLUCOSE 119 MG/DL (83-110)
[2017-07-26] MEDS: POTASSIUM CHLORIDE 10% LIQ 20 MEQ/15 ML UDC PO (18:44)
[2017-07-26 20:32] LABS: BEDSIDE GLUCOSE 171 MG/DL (83-110)
[2017-07-26] MEDS: LEVEMIR (INSULIN DETEMIR) 1 UNITS/0.01ML SC (22:04)
[2017-07-26] MEDS: ATORVASTATIN 20 MG TAB PO (22:04)
[2017-07-27 02:23] LABS: BEDSIDE GLUCOSE 108 MG/DL (83-110)
[2017-07-27] MEDS: SLF 3 ML SYR IV ×4 (02:38→20:25)
[2017-07-27] MEDS: PANTOPRAZOLE SODIUM 40 MG in D5W 50 ML IV (02:39)
[2017-07-27 04:08] LABS: BASO % 0.4 % (0.0-1.0); EOS # 0.2 10^3/uL (0.0-0.50); EOS % 3.4 % (0.0-3.0); HEMATOCRIT 31.3 % (36.0-47.0); HEMOGLOBIN 10.1 g/dl (12.0-15.5); IMMATURE GRANULOCYTE % 0.3 % (0-3.0); LYMPH # 0.4 10^3/uL (1.5-4.5); LYMPH % 5.2 % (24.0-44.0); MEAN CORPUSCULAR HEMOGLOBIN 27.7 pg (27.0-33.0); MEAN CORPUSCULAR HGB CONC 32.3 g/dl (32.0-36.5); MEAN CORPUSCULAR VOLUME 85.8 fl (80.0-96.0); MONO # 0.7 10^3/uL (0.0-0.8); NEUTROPHILS # 5.4 10^3/uL (1.8-7.7); NEUTROPHILS % 80.7 % (36.0-66.0); PLATELET COUNT, AUTOMATED 328 10^3/uL (150-450); RED BLOOD COUNT 3.65 10^6/uL (4.00-5.40); WHITE BLOOD COUNT 6.7 10^3/uL (4.0-10.0)
[2017-07-27 04:22] LABS: ANION GAP 7 MEQ/L (8-16); BLOOD UREA NITROGEN 12 MG/DL (7-18); CALCIUM LEVEL 8.2 MG/DL (8.8-10.2); CARBON DIOXIDE LEVEL 28 MEQ/L (21-32); CHLORIDE LEVEL 106 MEQ/L (98-107); CREATININE FOR GFR 0.64 MG/DL (0.55-1.30); GLOMERULAR FILTRATION RATE > 60.0 (>39); GLUCOSE, FASTING 94 MG/DL (70-100); MAGNESIUM LEVEL 1.6 MG/DL (1.8-2.4); POTASSIUM SERUM 3.5 MEQ/L (3.5-5.1); SODIUM LEVEL 141 MEQ/L (136-145)
[2017-07-27] MEDS: LEVOTHYROXINE 75MCG TABLET (0.075MG) PO (05:31)
[2017-07-27] MEDS: LEVOTHYROXINE 100MCG TABLET (0.1MG) PO (05:32)
[2017-07-27] MEDS: HumaLOG INSULIN (NovoLOG) PER UNIT SC ×4 (07:07→20:22)
[2017-07-27 08:06] LABS: HAPTOGLOBIN 462 mg/dL (34-200)
[2017-07-27] MEDS: AMIODARONE 200 MG TAB (PACERONE) PO (08:54)
[2017-07-27] MEDS: PRIMIDONE 50 MG TAB PO ×2 (08:54→20:24)
[2017-07-27] MEDS: SENNA 8.6 MG TAB (SENOKOT) PO ×2 (08:59→20:24)
[2017-07-27] MEDS: DOCUSATE SODIUM 100 MG CAP PO ×2 (08:59→20:23)
[2017-07-27] MEDS: PANTOPRAZOLE 40MG TAB (PROTONIX) PO (08:59)
[2017-07-27] MEDS: MAGNESIUM OXIDE 400 MG TAB (MAG-OX) PO ×2 (08:59→20:24)
[2017-07-27 11:44] LABS: BEDSIDE GLUCOSE 123 MG/DL (83-110)
[2017-07-27] MEDS: ALBUTEROL SULFATE 2.5 MG/0.5 ML INH NEB SOLN NEB ×2 (17:12→23:55)
[2017-07-27 17:13] LABS: BEDSIDE GLUCOSE 127 MG/DL (83-110)
[2017-07-27 20:16] LABS: BEDSIDE GLUCOSE 143 MG/DL (83-110)
[2017-07-27] MEDS: LEVEMIR (INSULIN DETEMIR) 1 UNITS/0.01ML SC (20:22)
[2017-07-27] MEDS: ATORVASTATIN 20 MG TAB PO (20:23)
[2017-07-27] MEDS: ACETAMINOPHEN TAB 650MG DOSE (2X325MG) PO (20:24)
[2017-07-28 05:29] LABS: BASO % 0.5 % (0.0-1.0); EOS # 0.3 10^3/uL (0.0-0.50); HEMATOCRIT 33.9 % (36.0-47.0); HEMOGLOBIN 10.5 g/dl (12.0-15.5); IMMATURE GRANULOCYTE % 0.5 % (0-3.0); LYMPH # 0.4 10^3/uL (1.5-4.5); LYMPH % 5.9 % (24.0-44.0); MEAN CORPUSCULAR HEMOGLOBIN 27.9 pg (27.0-33.0); MEAN CORPUSCULAR VOLUME 90.2 fl (80.0-96.0); MONO # 0.8 10^3/uL (0.0-0.8); MONO % 12.5 % (0.0-5.0); NEUTROPHILS # 4.6 10^3/uL (1.8-7.7); NEUTROPHILS % 75.6 % (36.0-66.0); PLATELET COUNT, AUTOMATED 278 10^3/uL (150-450); RED BLOOD COUNT 3.76 10^6/uL (4.00-5.40); WHITE BLOOD COUNT 6.1 10^3/uL (4.0-10.0)
[2017-07-28 05:34] LABS: POS COUNT POS FLAG
[2017-07-28 05:37] LABS: ANION GAP 7 MEQ/L (8-16); BLOOD UREA NITROGEN 14 MG/DL (7-18); CALCIUM LEVEL 8.3 MG/DL (8.8-10.2); CARBON DIOXIDE LEVEL 26 MEQ/L (21-32); CHLORIDE LEVEL 108 MEQ/L (98-107); GLOMERULAR FILTRATION RATE > 60.0 (>39); GLUCOSE, FASTING 95 MG/DL (70-100); POTASSIUM SERUM 3.6 MEQ/L (3.5-5.1); SODIUM LEVEL 141 MEQ/L (136-145)
[2017-07-28] MEDS: LEVOTHYROXINE 75MCG TABLET (0.075MG) PO (05:54)
[2017-07-28] MEDS: LEVOTHYROXINE 100MCG TABLET (0.1MG) PO (05:54)
[2017-07-28] MEDS: ACETAMINOPHEN TAB 650MG DOSE (2X325MG) PO ×3 (05:54→18:00)
[2017-07-28] MEDS: SLF 3 ML SYR IV ×3 (05:56→21:12)
[2017-07-28] MEDS: ALBUTEROL SULFATE 2.5 MG/0.5 ML INH NEB SOLN NEB ×3 (06:14→18:00)
[2017-07-28] MEDS: HumaLOG INSULIN (NovoLOG) PER UNIT SC ×5 (07:06→21:00)
[2017-07-28] MEDS: SENNA 8.6 MG TAB (SENOKOT) PO ×2 (08:12→20:33)
[2017-07-28] MEDS: DOCUSATE SODIUM 100 MG CAP PO ×2 (08:12→20:32)
[2017-07-28] MEDS: AMIODARONE 200 MG TAB (PACERONE) PO (08:13)
[2017-07-28] MEDS: PRIMIDONE 50 MG TAB PO ×2 (08:13→20:33)
[2017-07-28] MEDS: PANTOPRAZOLE 40MG TAB (PROTONIX) PO (08:13)
[2017-07-28] MEDS: MAGNESIUM OXIDE 400 MG TAB (MAG-OX) PO ×2 (08:13→20:32)
[2017-07-28 11:46] LABS: BEDSIDE GLUCOSE 143 MG/DL (83-110)
[2017-07-28 16:54] LABS: BEDSIDE GLUCOSE 110 MG/DL (83-110)
[2017-07-28] MEDS: ATORVASTATIN 20 MG TAB PO (20:32)
[2017-07-28] MEDS: LEVEMIR (INSULIN DETEMIR) 1 UNITS/0.01ML SC (20:34)
[2017-07-28 22:06] LABS: BEDSIDE GLUCOSE 207 MG/DL (83-110)
[2017-07-29] MEDS: ACETAMINOPHEN TAB 650MG DOSE (2X325MG) PO ×4 (00:06→19:55)
[2017-07-29] MEDS: ALBUTEROL SULFATE 2.5 MG/0.5 ML INH NEB SOLN NEB ×5 (00:25→23:56)
[2017-07-29 05:18] LABS: BASO % 0.6 % (0.0-1.0); EOS # 0.3 10^3/uL (0.0-0.50); HEMATOCRIT 29.6 % (36.0-47.0); HEMOGLOBIN 9.4 g/dl (12.0-15.5); IMMATURE GRANULOCYTE % 0.3 % (0-3.0); LYMPH # 0.5 10^3/uL (1.5-4.5); LYMPH % 8.4 % (24.0-44.0); MEAN CORPUSCULAR HEMOGLOBIN 27.6 pg (27.0-33.0); MEAN CORPUSCULAR HGB CONC 31.8 g/dl (32.0-36.5); MEAN CORPUSCULAR VOLUME 87.1 fl (80.0-96.0); MONO # 0.8 10^3/uL (0.0-0.8); MONO % 12.9 % (0.0-5.0); NEUTROPHILS # 4.5 10^3/uL (1.8-7.7); NEUTROPHILS % 72.8 % (36.0-66.0); PLATELET COUNT, AUTOMATED 335 10^3/uL (150-450); RED CELL DISTRIBUTION WIDTH 15.9 % (11.5-14.5); WHITE BLOOD COUNT 6.2 10^3/uL (4.0-10.0)
[2017-07-29 05:53] LABS: ANION GAP 8 MEQ/L (8-16); BLOOD UREA NITROGEN 14 MG/DL (7-18); CALCIUM LEVEL 8.4 MG/DL (8.8-10.2); CARBON DIOXIDE LEVEL 26 MEQ/L (21-32); CHLORIDE LEVEL 109 MEQ/L (98-107); GLOMERULAR FILTRATION RATE > 60.0 (>39); GLUCOSE, FASTING 100 MG/DL (70-100); POTASSIUM SERUM 3.3 MEQ/L (3.5-5.1); SODIUM LEVEL 143 MEQ/L (136-145)
[2017-07-29] MEDS: LEVOTHYROXINE 75MCG TABLET (0.075MG) PO (05:57)
[2017-07-29] MEDS: LEVOTHYROXINE 100MCG TABLET (0.1MG) PO (05:57)
[2017-07-29] MEDS: SLF 3 ML SYR IV ×3 (05:58→20:42)
[2017-07-29] MEDS: HumaLOG INSULIN (NovoLOG) PER UNIT SC ×4 (07:17→20:42)
[2017-07-29] MEDS: DOCUSATE SODIUM 100 MG CAP PO ×2 (08:02→20:41)
[2017-07-29] MEDS: MAGNESIUM OXIDE 400 MG TAB (MAG-OX) PO ×2 (08:02→20:41)
[2017-07-29] MEDS: PRIMIDONE 50 MG TAB PO ×2 (08:02→20:41)
[2017-07-29] MEDS: AMIODARONE 200 MG TAB (PACERONE) PO (08:02)
[2017-07-29] MEDS: PANTOPRAZOLE 40MG TAB (PROTONIX) PO (08:02)
[2017-07-29] MEDS: SENNA 8.6 MG TAB (SENOKOT) PO ×2 (08:03→20:41)
[2017-07-29] MEDS: POTASSIUM CHLORIDE 10 MEQ SR TABLET PO (09:53)
[2017-07-29 11:46] LABS: BEDSIDE GLUCOSE 136 MG/DL (83-110)
[2017-07-29] MEDS: BISACODYL 10 MG SUPP PR (15:17)
[2017-07-29 17:00] LABS: BEDSIDE GLUCOSE 144 MG/DL (83-110)
[2017-07-29 20:23] LABS: BEDSIDE GLUCOSE 191 MG/DL (83-110)
[2017-07-29] MEDS: ATORVASTATIN 20 MG TAB PO (20:40)
[2017-07-29] MEDS: LEVEMIR (INSULIN DETEMIR) 1 UNITS/0.01ML SC (20:42)
[2017-07-30 05:36] LABS: BASO % 0.6 % (0.0-1.0); EOS # 0.3 10^3/uL (0.0-0.50); EOS % 4.8 % (0.0-3.0); HEMOGLOBIN 10.2 g/dl (12.0-15.5); IMMATURE GRANULOCYTE % 0.3 % (0-3.0); LYMPH # 0.5 10^3/uL (1.5-4.5); MEAN CORPUSCULAR HEMOGLOBIN 27.5 pg (27.0-33.0); MEAN CORPUSCULAR HGB CONC 31.9 g/dl (32.0-36.5); MEAN CORPUSCULAR VOLUME 86.3 fl (80.0-96.0); MONO # 0.8 10^3/uL (0.0-0.8); MONO % 11.6 % (0.0-5.0); NEUTROPHILS # 5.2 10^3/uL (1.8-7.7); NEUTROPHILS % 75.7 % (36.0-66.0); PLATELET COUNT, AUTOMATED 398 10^3/uL (150-450); RED BLOOD COUNT 3.71 10^6/uL (4.00-5.40); RED CELL DISTRIBUTION WIDTH 15.7 % (11.5-14.5); WHITE BLOOD COUNT 6.8 10^3/uL (4.0-10.0)
[2017-07-30 05:58] LABS: ANION GAP 6 MEQ/L (8-16); BLOOD UREA NITROGEN 13 MG/DL (7-18); CALCIUM LEVEL 8.5 MG/DL (8.8-10.2); CARBON DIOXIDE LEVEL 23 MEQ/L (21-32); CHLORIDE LEVEL 109 MEQ/L (98-107); CREATININE FOR GFR 0.58 MG/DL (0.55-1.30); GLOMERULAR FILTRATION RATE > 60.0 (>39); GLUCOSE, FASTING 82 MG/DL (70-100); POTASSIUM SERUM 4.3 MEQ/L (3.5-5.1); SODIUM LEVEL 138 MEQ/L (136-145)
[2017-07-30] MEDS: LEVOTHYROXINE 75MCG TABLET (0.075MG) PO (06:03)
[2017-07-30] MEDS: LEVOTHYROXINE 100MCG TABLET (0.1MG) PO (06:03)
[2017-07-30] MEDS: ACETAMINOPHEN TAB 650MG DOSE (2X325MG) PO ×4 (06:03→23:47)
[2017-07-30] MEDS: SLF 3 ML SYR IV ×3 (06:04→20:53)
[2017-07-30] MEDS: ALBUTEROL SULFATE 2.5 MG/0.5 ML INH NEB SOLN NEB ×2 (06:12→17:54)
[2017-07-30] MEDS: HumaLOG INSULIN (NovoLOG) PER UNIT SC ×4 (07:30→21:00)
[2017-07-30] MEDS: POTASSIUM CHLORIDE 10 MEQ SR TABLET PO (08:26)
[2017-07-30] MEDS: DOCUSATE SODIUM 100 MG CAP PO ×2 (08:26→20:52)
[2017-07-30] MEDS: PANTOPRAZOLE 40MG TAB (PROTONIX) PO (08:26)
[2017-07-30] MEDS: SENNA 8.6 MG TAB (SENOKOT) PO ×2 (08:26→20:51)
[2017-07-30] MEDS: MAGNESIUM OXIDE 400 MG TAB (MAG-OX) PO ×2 (08:27→20:52)
[2017-07-30] MEDS: AMIODARONE 200 MG TAB (PACERONE) PO (08:27)
[2017-07-30] MEDS: PRIMIDONE 50 MG TAB PO ×2 (08:27→20:52)
[2017-07-30 11:20] LABS: BEDSIDE GLUCOSE 131 MG/DL (83-110)
[2017-07-30] MEDS: MOM 30ML SUSPENSION UDC PO (11:54)
[2017-07-30 17:07] LABS: BEDSIDE GLUCOSE 95 MG/DL (83-110)
[2017-07-30] MEDS: ATORVASTATIN 20 MG TAB PO (20:52)
[2017-07-30] MEDS: LEVEMIR (INSULIN DETEMIR) 1 UNITS/0.01ML SC (20:52)
[2017-07-30 21:13] LABS: BEDSIDE GLUCOSE 179 MG/DL (83-110)
[2017-07-31] MEDS: ALBUTEROL SULFATE 2.5 MG/0.5 ML INH NEB SOLN NEB ×3 (00:01→11:17)
[2017-07-31] MEDS: LEVOTHYROXINE 100MCG TABLET (0.1MG) PO (05:59)
[2017-07-31] MEDS: LEVOTHYROXINE 75MCG TABLET (0.075MG) PO (05:59)
[2017-07-31] MEDS: ACETAMINOPHEN TAB 650MG DOSE (2X325MG) PO (06:00)
[2017-07-31] MEDS: SLF 3 ML SYR IV (06:00)
[2017-07-31 07:30] LABS: BASO % 0.5 % (0.0-1.0); EOS # 0.2 10^3/uL (0.0-0.50); EOS % 3.9 % (0.0-3.0); HEMATOCRIT 30.8 % (36.0-47.0); HEMOGLOBIN 9.6 g/dl (12.0-15.5); IMMATURE GRANULOCYTE % 0.5 % (0-3.0); LYMPH # 0.5 10^3/uL (1.5-4.5); LYMPH % 7.8 % (24.0-44.0); MEAN CORPUSCULAR HGB CONC 31.2 g/dl (32.0-36.5); MEAN CORPUSCULAR VOLUME 89.8 fl (80.0-96.0); MONO # 0.6 10^3/uL (0.0-0.8); MONO % 10.1 % (0.0-5.0); NEUTROPHILS # 4.8 10^3/uL (1.8-7.7); NEUTROPHILS % 77.2 % (36.0-66.0); PLATELET COUNT, AUTOMATED 345 10^3/uL (150-450); RED BLOOD COUNT 3.43 10^6/uL (4.00-5.40); RED CELL DISTRIBUTION WIDTH 15.7 % (11.5-14.5); WHITE BLOOD COUNT 6.2 10^3/uL (4.0-10.0)
[2017-07-31] MEDS: HumaLOG INSULIN (NovoLOG) PER UNIT SC ×2 (07:30→11:30)
[2017-07-31 07:48] LABS: ANION GAP 3 MEQ/L (8-16); BLOOD UREA NITROGEN 14 MG/DL (7-18); CALCIUM LEVEL 8.8 MG/DL (8.8-10.2); CARBON DIOXIDE LEVEL 30 MEQ/L (21-32); CHLORIDE LEVEL 110 MEQ/L (98-107); CREATININE FOR GFR 0.59 MG/DL (0.55-1.30); GLOMERULAR FILTRATION RATE > 60.0 (>39); GLUCOSE, FASTING 90 MG/DL (70-100); POTASSIUM SERUM 4.7 MEQ/L (3.5-5.1); SODIUM LEVEL 143 MEQ/L (136-145)
[2017-07-31] MEDS: MIRALAX *UNIT DOSE* 17GM PACKET PO (08:29)
[2017-07-31] MEDS: DOCUSATE SODIUM 100 MG CAP PO (08:30)
[2017-07-31] MEDS: SENNA 8.6 MG TAB (SENOKOT) PO (08:30)
[2017-07-31] MEDS: PRIMIDONE 50 MG TAB PO (08:30)
[2017-07-31] MEDS: AMIODARONE 200 MG TAB (PACERONE) PO (08:30)
[2017-07-31] MEDS: POTASSIUM CHLORIDE 10 MEQ SR TABLET PO (08:31)
[2017-07-31] MEDS: PANTOPRAZOLE 40MG TAB (PROTONIX) PO (08:31)
[2017-07-31] MEDS: MAGNESIUM OXIDE 400 MG TAB (MAG-OX) PO (08:31)
[2017-07-31 09:42] LABS: ALBUMIN 2.34 GM/DL (3.29-5.55); ALBUMIN % 34.9 % (55.8-66.1); ALPHA-1-GLOBULIN % 9.9 % (2.9-4.9); ALPHA-1-GLOBULINS 0.66 GM/DL (0.17-0.41); ALPHA-2-GLOBULINS 1.47 GM/DL (0.42-0.99); ALPHA-2-GLOBULINS % 21.9 % (7.1-11.8); BETA-1-GLOBULINS 0.37 GM/DL (0.28-0.60); BETA-1-GLOBULINS % 5.5 % (4.7-7.2); BETA-2-GLOBULINS 0.53 GM/DL (0.19-0.55); BETA-2-GLOBULINS % 7.9 % (3.2-6.5); GAMMA GLOBULIN % 19.9 % (11.1-18.8); GAMMA GLOBULINS 1.33 GM/DL (0.65-1.58)
== END 2017-07-31 12:35 | disposition home or self-care (01) | DRG 374 ==
LOC: M MSPAV 07-30 14:21 → M PCU 07-25 00:43 → M MSPAV 07-30 22:52 → M ED 19:15 → M ED INP 22:54
PROC: 30233N1 Transfusion of Nonautologous Red Blood Cells into Peripheral Vein, Percutaneous Approach (ICD-10-PCS; principal; 2017-07-26 14:35)
PROC: 0DB58ZX Excision of Esophagus, Via Natural or Artificial Opening Endoscopic, Diagnostic (ICD-10-PCS; 2017-07-26 14:35)
PROC: 0DBH8ZX Excision of Cecum, Via Natural or Artificial Opening Endoscopic, Diagnostic (ICD-10-PCS; 2017-07-26 14:35)
PROC: 0DBK8ZX Excision of Ascending Colon, Via Natural or Artificial Opening Endoscopic, Diagnostic (ICD-10-PCS; 2017-07-26 14:35)
DX: D37.4 Neoplasm of uncertain behavior of colon (principal); K57.91 Diverticulosis of intestine, part unspecified, without perforation or abscess with bleeding; D62 Acute posthemorrhagic anemia; I50.32 Chronic diastolic (congestive) heart failure; I12.0 Hypertensive chronic kidney disease with stage 5 chronic kidney disease or end stage renal disease; E03.9 Hypothyroidism, unspecified; D47.2 Monoclonal gammopathy; D12.0 Benign neoplasm of cecum; D12.2 Benign neoplasm of ascending colon; D12.4 Benign neoplasm of descending colon; D12.3 Benign neoplasm of transverse colon; K29.00 Acute gastritis without bleeding; J44.9 Chronic obstructive pulmonary disease, unspecified; E11.9 Type 2 diabetes mellitus without complications; I48.0 Paroxysmal atrial fibrillation; E83.42 Hypomagnesemia; Z79.899 Other long term (current) drug therapy; Z88.8 Allergy status to other drugs, medicaments and biological substances; Z88.2 Allergy status to sulfonamides; Z88.0 Allergy status to penicillin; E66.01 Morbid (severe) obesity due to excess calories; I73.9 Peripheral vascular disease, unspecified; E55.9 Vitamin D deficiency, unspecified; F32.9 Major depressive disorder, single episode, unspecified; J84.10 Pulmonary fibrosis, unspecified; K76.0 Fatty (change of) liver, not elsewhere classified; Z87.891 Personal history of nicotine dependence; K59.00 Constipation, unspecified; I95.1 Orthostatic hypotension; Z85.818 Personal history of malignant neoplasm of other sites of lip, oral cavity, and pharynx; Z79.4 Long term (current) use of insulin

== ENCOUNTER → 2017-07-24 | Outpatient (REF) | payer MEDICARE ==
[2017-07-24 15:38] LABS: BASO % 0.3 % (0.0-1.0); EOS # 0.3 10^3/uL (0.0-0.50); EOS % 4.1 % (0.0-3.0); HEMOGLOBIN 7.3 g/dl (12.0-15.5); IMMATURE GRANULOCYTE % 0.4 % (0-3.0); LYMPH # 0.5 10^3/uL (1.5-4.5); LYMPH % 6.9 % (24.0-44.0); MEAN CORPUSCULAR HEMOGLOBIN 27.1 pg (27.0-33.0); MEAN CORPUSCULAR HGB CONC 30.4 g/dl (32.0-36.5); MEAN CORPUSCULAR VOLUME 89.2 fl (80.0-96.0); MONO # 0.8 10^3/uL (0.0-0.8); MONO % 11.5 % (0.0-5.0); NEUTROPHILS # 5.5 10^3/uL (1.8-7.7); NEUTROPHILS % 76.8 % (36.0-66.0); PLATELET COUNT, AUTOMATED 424 10^3/uL (150-450); RED BLOOD COUNT 2.69 10^6/uL (4.00-5.40); RED CELL DISTRIBUTION WIDTH 16.8 % (11.5-14.5); WHITE BLOOD COUNT 7.1 10^3/uL (4.0-10.0)
[2017-07-24 16:11] LABS: FREE T4 1.55 NG/DL (0.76-1.46)
== END ==
LOC: M SFHCPLAZ 14:08
DX: E03.9 Hypothyroidism, unspecified (principal); D64.9 Anemia, unspecified
CPT/HCPCS: 84443

== ENCOUNTER → 2017-08-08 | Outpatient (REF) | payer MEDICARE ==
[2017-08-08 20:07] LABS: BASO % 0.5 % (0.0-1.0); EOS # 0.2 10^3/uL (0.0-0.50); EOS % 3.2 % (0.0-3.0); HEMATOCRIT 33.1 % (36.0-47.0); IMMATURE GRANULOCYTE % 0.5 % (0-3.0); LYMPH # 0.7 10^3/uL (1.5-4.5); LYMPH % 8.7 % (24.0-44.0); MEAN CORPUSCULAR HEMOGLOBIN 27.7 pg (27.0-33.0); MEAN CORPUSCULAR HGB CONC 30.2 g/dl (32.0-36.5); MEAN CORPUSCULAR VOLUME 91.7 fl (80.0-96.0); MONO # 0.7 10^3/uL (0.0-0.8); MONO % 8.7 % (0.0-5.0); NEUTROPHILS # 5.8 10^3/uL (1.8-7.7); NEUTROPHILS % 78.4 % (36.0-66.0); PLATELET COUNT, AUTOMATED 372 10^3/uL (150-450); RED BLOOD COUNT 3.61 10^6/uL (4.00-5.40); RED CELL DISTRIBUTION WIDTH 16.1 % (11.5-14.5); WHITE BLOOD COUNT 7.4 10^3/uL (4.0-10.0)
[2017-08-08 20:08] LABS: ALBUMIN 2.2 GM/DL (3.2-5.2); ALBUMIN/GLOBULIN RATIO 0.51 (1.00-1.93); ALKALINE PHOSPHATASE 101 U/L (45-117); ALT/SGPT 53 U/L (12-78); ANION GAP 9 MEQ/L (8-16); AST/SGOT 63 U/L (7-37); BILIRUBIN,TOTAL 0.2 MG/DL (0.2-1.0); BLOOD UREA NITROGEN 12 MG/DL (7-18); CARBON DIOXIDE LEVEL 27 MEQ/L (21-32); CHLORIDE LEVEL 107 MEQ/L (98-107); CREATININE FOR GFR 0.98 MG/DL (0.55-1.30); GLOMERULAR FILTRATION RATE 58.6 (>39); GLUCOSE, FASTING 163 MG/DL (70-100); POTASSIUM SERUM 4.3 MEQ/L (3.5-5.1); SODIUM LEVEL 143 MEQ/L (136-145); TOTAL PROTEIN 6.5 GM/DL (6.4-8.2)
== END ==
LOC: M SFHCADAM 14:15
DX: R91.8 Other nonspecific abnormal finding of lung field (principal); N18.3 Chronic kidney disease, stage 3 (moderate); D50.0 Iron deficiency anemia secondary to blood loss (chronic)
CPT/HCPCS: 80053

== ENCOUNTER → 2017-08-15 | Outpatient (CLI) | payer MEDICARE | LOC: M RAD 13:29 | DX: R91.8 Other nonspecific abnormal finding of lung field (principal) | CPT/HCPCS: 71046 ==

== ENCOUNTER → 2017-08-16 | Outpatient (REF) | payer MEDICARE ==
[2017-08-16 12:31] LABS: URINE TOTAL PROTEIN 189.7 MG/DL (0-12)
[2017-08-16 12:39] LABS: IMMUNOGLOBULIN G 1320 MG/DL (681-1648); IMMUNOGLOBULIN M 405 MG/DL (40-230); TOTAL PROTEIN 7.3 GM/DL (6.4-8.2)
[2017-08-18 00:06] LABS: FREE KAPPA LIGHT CHAINS SERUM 56.6 mg/L (3.3-19.4); FREE LAMBDA LIGHT CHAINS SERUM 62.2 mg/L (5.7-26.3); KAPPA/LAMBDA RATIO SERUM 0.91 (0.26-1.65)
[2017-08-19 12:20] LABS: ALBUMIN 3.26 GM/DL (3.29-5.55); ALBUMIN % 44.7 % (55.8-66.1)
[2017-08-19 12:21] LABS: ALPHA-1-GLOBULIN % 6.6 % (2.9-4.9); ALPHA-1-GLOBULINS 0.48 GM/DL (0.17-0.41); ALPHA-2-GLOBULINS 1.09 GM/DL (0.42-0.99); ALPHA-2-GLOBULINS % 14.9 % (7.1-11.8); BETA-1-GLOBULINS 0.45 GM/DL (0.28-0.60); BETA-1-GLOBULINS % 6.1 % (4.7-7.2); BETA-2-GLOBULINS 0.48 GM/DL (0.19-0.55); BETA-2-GLOBULINS % 6.6 % (3.2-6.5); GAMMA GLOBULIN % 21.1 % (11.1-18.8); GAMMA GLOBULINS 1.54 GM/DL (0.65-1.58)
[2017-08-20 10:36] LABS: CARCINOEMBRYONIC ANTIGEN 3.9 NG/ML (<2.5)
== END ==
LOC: M LAB REF 12:01
DX: C34.31 Malignant neoplasm of lower lobe, right bronchus or lung (principal); D47.2 Monoclonal gammopathy; D64.9 Anemia, unspecified
CPT/HCPCS: 82378

== ENCOUNTER → 2017-08-23 | Outpatient (CLI) | payer MEDICARE ==
[~2017-08-23] MED LIST changes: +GASTROGRAFIN SOLUTION 30ML (Q9963) As Ordered
== END ==
LOC: M RAD 07:57
DX: R93.5 Abnormal findings on diagnostic imaging of other abdominal regions, including retroperitoneum (principal); J90 Pleural effusion, not elsewhere classified; K57.32 Diverticulitis of large intestine without perforation or abscess without bleeding
CPT/HCPCS: Q9963

== ENCOUNTER 2017-09-03 12:16 | Inpatient (IN) | payer MEDICARE ==
[2017-09-03] MEDS ORDERED: ERTAPENEM 1 GM INJ (INVanz) (J1335) As Ordered (13:00)
[2017-09-03 13:25] LABS: BEDSIDE GLUCOSE 101 MG/DL (83-110)
[2017-09-03] MEDS: LR 1,000 ML IV (13:40)
[2017-09-03] MEDS ORDERED: LIDOCAINE 2% INJ 100 MG/5 ML SDV (FOR ANES.) As Ordered (14:37)
[2017-09-03] MEDS ORDERED: ROCURONIUM BROMIDE 50 MG/5 ML VIAL As Ordered ×2 (14:37→15:40)
[2017-09-03] MEDS ORDERED: fentaNYL 100 MCG/2 ML INJECTION (J3010) As Ordered (14:38)
[2017-09-03] MEDS: ERTAPENEM SODIUM 1 GM in NS 50 ML IV (15:05)
[2017-09-03] MEDS ORDERED: PHENYLEPHRINE INJ 10MG/ML VIAL (J2370) As Ordered (15:23)
[2017-09-03] MEDS ORDERED: ePHEDrine SULFATE 25 MG/5 ML(5MG/ML) SYRINGE As Ordered (15:23)
[2017-09-03] MEDS ORDERED: HYDROmorphone HCL 2 MG/ML 1ML VIAL (J1170) As Ordered (15:23)
[2017-09-03] MEDS ORDERED: PHENYLephrine HCL 500 MCG/5 ML (100MCG/ML) SYRINGE (J2370) As Ordered (15:23)
[2017-09-03] MEDS: BUPIVACAINE/EPIN 0.5% 30 ML VIAL As Ordered (18:00)
[2017-09-03] MEDS ORDERED: ONDANSETRON 4MG/2ML VIAL (J2405) As Ordered (18:23)
[2017-09-03] MEDS: BUPIVACAINE LIPOSOME/PF 1.3% 20 ML VIAL (13.3MG/ML)(EXPAREL) As Ordered (18:40)
[2017-09-03] MEDS: BUPIVACAINE HCL 0.25% 30 ML VIAL As Ordered (18:40)
[2017-09-03] MEDS ORDERED: MORPHINE 1MG/ML IN 0.9% NACL 100ML IV BAG As Ordered (18:46)
[2017-09-03] MEDS: GLUCAGON FOR INJ 1 MG VIAL (J1610) As Ordered (18:49)
[2017-09-03] MEDS ORDERED: NS 1,000 ML IV (18:50)
[2017-09-03] MEDS ORDERED: NALBUPHINE HCL 10 MG/ML AMP (J2300) IV (19:00)
[2017-09-03] MEDS ORDERED: NALOXONE INJ 0.4 MG/1 ML VIAL (J2310) IV (19:00)
[2017-09-03] MEDS ORDERED: ONDANSETRON 4MG/2ML VIAL (J2405) IV (19:00)
[2017-09-03] MEDS ORDERED: IPRATROPIUM 0.5MG/ALBUTEROL 2.5MG INH SOL UD 3ML (DUONEB)(J7620) NEB (19:00)
[2017-09-03] MEDS ORDERED: diphenhydrAMINE INJ 50MG/ML VIAL (J1200) IV (19:00)
[2017-09-03] MEDS ORDERED: MECLIZINE 25 MG TABLET PO (19:00)
[2017-09-03] MEDS ORDERED: EPIDURAL/PCA KEYS XX (19:00)
[2017-09-03] MEDS ORDERED: PROMETHAZINE INJ 25 MG/ML VIAL (J2550) IV (19:00)
[2017-09-03] MEDS ORDERED: METOCLOPRAMIDE INJ 10MG/2ML VIAL (J2765) IV (19:00)
[2017-09-03 19:06] LABS: BEDSIDE GLUCOSE 169 MG/DL (83-110)
[2017-09-03] MEDS: MORPHINE 1MG/ML IN 0.9% NACL 100ML IV BAG IV (19:20)
[2017-09-03] MEDS: IPRATROPIUM 0.5MG/ALBUTEROL 2.5MG INH SOL UD 3ML (DUONEB)(J7620) NEB (20:00)
[2017-09-03] MEDS: AMIODARONE 200 MG TAB (PACERONE) PO (21:24)
[2017-09-03] MEDS: ATORVASTATIN 20 MG TAB PO (21:24)
[2017-09-03] MEDS: SENNA 8.6 MG TAB (SENOKOT) PO (21:24)
[2017-09-03] MEDS: PANTOPRAZOLE 40MG INJ (PROTONIX) (C9113) IV (21:24)
[2017-09-03] MEDS: NS 1,000 ML IV (21:25)
[2017-09-03] MEDS: SPIRONOLACTONE 25 MG TAB PO (22:42)
[2017-09-03] MEDS: NS 500 ML IV (22:44)
[2017-09-03] MEDS: LACTATED RINGER'S 1000 ML IV (23:48)
[2017-09-04 00:14] LABS: BEDSIDE GLUCOSE 130 MG/DL (83-110)
[2017-09-04] MEDS: HumaLOG INSULIN (NovoLOG) PER UNIT SC ×4 (00:22→18:00)
[2017-09-04] MEDS: NS 1,000 ML IV ×3 (02:42→20:40)
[2017-09-04] MEDS: IPRATROPIUM 0.5MG/ALBUTEROL 2.5MG INH SOL UD 3ML (DUONEB)(J7620) NEB ×3 (02:59→21:11)
[2017-09-04] MEDS: LACTATED RINGER'S 1000 ML IV (04:30)
[2017-09-04 05:48] LABS: BEDSIDE GLUCOSE 104 MG/DL (83-110)
[2017-09-04 06:34] LABS: HEMATOCRIT 28.2 % (36.0-47.0); HEMOGLOBIN 8.8 g/dl (12.0-15.5); MEAN CORPUSCULAR HEMOGLOBIN 28.2 pg (27.0-33.0); MEAN CORPUSCULAR HGB CONC 31.2 g/dl (32.0-36.5); MEAN CORPUSCULAR VOLUME 90.4 fl (80.0-96.0); PLATELET COUNT, AUTOMATED 226 10^3/uL (150-450); RED BLOOD COUNT 3.12 10^6/uL (4.00-5.40); RED CELL DISTRIBUTION WIDTH 15.9 % (11.5-14.5); WHITE BLOOD COUNT 7.1 10^3/uL (4.0-10.0)
[2017-09-04 06:45] LABS: ANION GAP 7 MEQ/L (8-16); BLOOD UREA NITROGEN 10 MG/DL (7-18); CARBON DIOXIDE LEVEL 27 MEQ/L (21-32); CHLORIDE LEVEL 107 MEQ/L (98-107); CREATININE FOR GFR 0.86 MG/DL (0.55-1.30); GLOMERULAR FILTRATION RATE > 60.0 (>39); GLUCOSE, FASTING 105 MG/DL (70-100); POTASSIUM SERUM 3.8 MEQ/L (3.5-5.1); SODIUM LEVEL 141 MEQ/L (136-145)
[2017-09-04] MEDS: AMIODARONE 200 MG TAB (PACERONE) PO (09:00)
[2017-09-04] MEDS: SPIRONOLACTONE 25 MG TAB PO (09:00)
[2017-09-04] MEDS: PRIMIDONE 50 MG TAB PO ×2 (11:20→14:00)
[2017-09-04] MEDS: SENNA 8.6 MG TAB (SENOKOT) PO ×2 (11:20→20:41)
[2017-09-04] MEDS: PANTOPRAZOLE 40MG INJ (PROTONIX) (C9113) IV (11:20)
[2017-09-04 11:55] LABS: BEDSIDE GLUCOSE 105 MG/DL (83-110)
[2017-09-04 17:30] LABS: IMMEDIATE SPIN CROSSMATCH 1 2
[2017-09-04] MEDS: ERTAPENEM SODIUM 1 GM in NS MINI-BAG PLUS 50 ML IV (20:40)
[2017-09-04] MEDS: ATORVASTATIN 20 MG TAB PO (20:40)
[2017-09-04] MEDS: FUROSEMIDE 20 MG/2 ML VIAL (J1940) IV (22:38)
[2017-09-04] MEDS: MECLIZINE 25 MG TABLET PO (22:39)
[2017-09-05] MEDS: HumaLOG INSULIN (NovoLOG) PER UNIT SC ×5 (00:58→23:51)
[2017-09-05] MEDS: IPRATROPIUM 0.5MG/ALBUTEROL 2.5MG INH SOL UD 3ML (DUONEB)(J7620) NEB ×4 (02:00→20:52)
[2017-09-05 05:32] LABS: HEMATOCRIT 32.8 % (36.0-47.0); HEMOGLOBIN 10.5 g/dl (12.0-15.5); MEAN CORPUSCULAR HEMOGLOBIN 28.3 pg (27.0-33.0); MEAN CORPUSCULAR VOLUME 88.4 fl (80.0-96.0); PLATELET COUNT, AUTOMATED 201 10^3/uL (150-450); RED BLOOD COUNT 3.71 10^6/uL (4.00-5.40); RED CELL DISTRIBUTION WIDTH 16.3 % (11.5-14.5); WHITE BLOOD COUNT 8.7 10^3/uL (4.0-10.0)
[2017-09-05 05:50] LABS: ANION GAP 6 MEQ/L (8-16); BLOOD UREA NITROGEN 9 MG/DL (7-18); CALCIUM LEVEL 7.5 MG/DL (8.8-10.2); CARBON DIOXIDE LEVEL 25 MEQ/L (21-32); CHLORIDE LEVEL 110 MEQ/L (98-107); CREATININE FOR GFR 0.61 MG/DL (0.55-1.30); GLOMERULAR FILTRATION RATE > 60.0 (>39); GLUCOSE, FASTING 107 MG/DL (70-100); POTASSIUM SERUM 3.6 MEQ/L (3.5-5.1); SODIUM LEVEL 141 MEQ/L (136-145)
[2017-09-05] MEDS: MECLIZINE 25 MG TABLET PO ×3 (06:00→21:49)
[2017-09-05] MEDS: NS 1,000 ML IV ×2 (06:00→11:54)
[2017-09-05] MEDS: PANTOPRAZOLE 40MG INJ (PROTONIX) (C9113) IV (08:15)
[2017-09-05] MEDS: AMIODARONE 200 MG TAB (PACERONE) PO (08:15)
[2017-09-05 10:12] LABS: BEDSIDE GLUCOSE 115 MG/DL (83-110)
[2017-09-05 10:13] LABS: BEDSIDE GLUCOSE 131 MG/DL (83-110)
[2017-09-05 11:45] LABS: BEDSIDE GLUCOSE 108 MG/DL (83-110)
[2017-09-05 17:53] LABS: BEDSIDE GLUCOSE 83 MG/DL (83-110)
[2017-09-05] MEDS: ATORVASTATIN 20 MG TAB PO (21:49)
[2017-09-05 23:52] LABS: BEDSIDE GLUCOSE 106 MG/DL (83-110)
[2017-09-06] MEDS: NS 1,000 ML IV ×2 (00:10→09:07)
[2017-09-06] MEDS: IPRATROPIUM 0.5MG/ALBUTEROL 2.5MG INH SOL UD 3ML (DUONEB)(J7620) NEB ×4 (01:46→20:01)
[2017-09-06] MEDS: MAALOX 30 ML SUSP *UDC PO (04:45)
[2017-09-06 05:13] LABS: BEDSIDE GLUCOSE 95 MG/DL (83-110)
[2017-09-06] MEDS: HumaLOG INSULIN (NovoLOG) PER UNIT SC ×4 (05:13→22:41)
[2017-09-06] MEDS: MECLIZINE 25 MG TABLET PO ×3 (05:18→21:23)
[2017-09-06 05:59] LABS: HEMATOCRIT 33.3 % (36.0-47.0); HEMOGLOBIN 10.4 g/dl (12.0-15.5); MEAN CORPUSCULAR HEMOGLOBIN 27.8 pg (27.0-33.0); MEAN CORPUSCULAR HGB CONC 31.2 g/dl (32.0-36.5); PLATELET COUNT, AUTOMATED 235 10^3/uL (150-450); RED BLOOD COUNT 3.74 10^6/uL (4.00-5.40); RED CELL DISTRIBUTION WIDTH 15.9 % (11.5-14.5); WHITE BLOOD COUNT 10.2 10^3/uL (4.0-10.0)
[2017-09-06 06:24] LABS: ANION GAP 7 MEQ/L (8-16); BLOOD UREA NITROGEN 7 MG/DL (7-18); CALCIUM LEVEL 7.8 MG/DL (8.8-10.2); CARBON DIOXIDE LEVEL 25 MEQ/L (21-32); CHLORIDE LEVEL 111 MEQ/L (98-107); CREATININE FOR GFR 0.52 MG/DL (0.55-1.30); GLOMERULAR FILTRATION RATE > 60.0 (>39); GLUCOSE, FASTING 98 MG/DL (70-100); POTASSIUM SERUM 3.7 MEQ/L (3.5-5.1); SODIUM LEVEL 143 MEQ/L (136-145)
[2017-09-06] MEDS: PANTOPRAZOLE 40MG INJ (PROTONIX) (C9113) IV (09:06)
[2017-09-06] MEDS: AMIODARONE 200 MG TAB (PACERONE) PO ×3 (09:06→23:02)
[2017-09-06] MEDS ORDERED: PERCOCET 5MG/325MG TAB PO (09:15)
[2017-09-06] MEDS ORDERED: PILL CRUSHER/CUTTER 1 EACH XX (09:45)
[2017-09-06] MEDS: SIMETHICONE 80 MG CHEW TAB PO ×4 (09:47→21:23)
[2017-09-06] MEDS: ALVIMOPAN 12 MG CAPSULE (ENTEREG) PO ×2 (11:00→21:22)
[2017-09-06 11:24] LABS: BEDSIDE GLUCOSE 148 MG/DL (83-110)
[2017-09-06] MEDS ORDERED: METOPROLOL 5 MG/5 ML VIAL IV (14:40)
[2017-09-06] MEDS ORDERED: DIGOXIN INJ 0.5 MG/2 ML AMP (J1160) As Ordered (15:03)
[2017-09-06] MEDS: DIGOXIN INJ 0.5 MG/2 ML AMP (J1160) IV ×2 (15:07→16:09)
[2017-09-06 17:09] LABS: BEDSIDE GLUCOSE 123 MG/DL (83-110)
[2017-09-06] MEDS: ATORVASTATIN 20 MG TAB PO (21:24)
[2017-09-06 22:31] LABS: BEDSIDE GLUCOSE 133 MG/DL (83-110)
[2017-09-07] MEDS: IPRATROPIUM 0.5MG/ALBUTEROL 2.5MG INH SOL UD 3ML (DUONEB)(J7620) NEB ×4 (01:22→20:37)
[2017-09-07] MEDS: PERCOCET 5MG/325MG TAB PO ×3 (02:12→12:25)
[2017-09-07] MEDS: ONDANSETRON 4MG/2ML VIAL (J2405) IV (04:50)
[2017-09-07 05:22] LABS: HEMATOCRIT 39.6 % (36.0-47.0); MEAN CORPUSCULAR HEMOGLOBIN 27.6 pg (27.0-33.0); MEAN CORPUSCULAR HGB CONC 31.6 g/dl (32.0-36.5); MEAN CORPUSCULAR VOLUME 87.4 fl (80.0-96.0); RED BLOOD COUNT 4.53 10^6/uL (4.00-5.40); RED CELL DISTRIBUTION WIDTH 15.6 % (11.5-14.5); WHITE BLOOD COUNT 12.7 10^3/uL (4.0-10.0)
[2017-09-07 05:27] LABS: HEMOGLOBIN 12.5 g/dl (12.0-15.5); PLATELET COUNT, AUTOMATED 360 10^3/uL (150-450)
[2017-09-07 05:34] LABS: ANION GAP 7 MEQ/L (8-16); BLOOD UREA NITROGEN 10 MG/DL (7-18); CALCIUM LEVEL 8.6 MG/DL (8.8-10.2); CARBON DIOXIDE LEVEL 27 MEQ/L (21-32); CHLORIDE LEVEL 108 MEQ/L (98-107); CREATININE FOR GFR 0.63 MG/DL (0.55-1.30); GLOMERULAR FILTRATION RATE > 60.0 (>39); GLUCOSE, FASTING 144 MG/DL (70-100); POTASSIUM SERUM 3.3 MEQ/L (3.5-5.1); SODIUM LEVEL 142 MEQ/L (136-145)
[2017-09-07] MEDS: AMIODARONE 200 MG TAB (PACERONE) PO ×3 (05:41→16:57)
[2017-09-07] MEDS: MECLIZINE 25 MG TABLET PO ×3 (05:41→20:22)
[2017-09-07] MEDS: PANTOPRAZOLE 40MG INJ (PROTONIX) (C9113) IV (08:18)
[2017-09-07] MEDS: HumaLOG INSULIN (NovoLOG) PER UNIT SC ×4 (08:19→20:22)
[2017-09-07] MEDS: SIMETHICONE 80 MG CHEW TAB PO ×4 (08:20→20:22)
[2017-09-07] MEDS: ALVIMOPAN 12 MG CAPSULE (ENTEREG) PO ×2 (08:20→20:22)
[2017-09-07] MEDS ORDERED: AMIODARONE 100MG TABLET (PACERONE) PO (09:00)
[2017-09-07] MEDS: KCL 10MEQ/100ML SWI (KRUN) 10 MEQ in APPROPRIATE DILUENT 1 EA IV ×3 (11:30→14:06)
[2017-09-07 11:46] LABS: BEDSIDE GLUCOSE 141 MG/DL (83-110)
[2017-09-07] MEDS: POTASSIUM CHLORIDE 10 MEQ SR TABLET PO (15:11)
[2017-09-07 16:49] LABS: BEDSIDE GLUCOSE 111 MG/DL (83-110)
[2017-09-07 20:13] LABS: BEDSIDE GLUCOSE 119 MG/DL (83-110)
[2017-09-07] MEDS: ATORVASTATIN 20 MG TAB PO (20:22)
[2017-09-07] MEDS: MAALOX 30 ML SUSP *UDC PO (23:02)
[2017-09-08] MEDS: AMIODARONE 200 MG TAB (PACERONE) PO ×5 (00:02→23:41)
[2017-09-08] MEDS: ONDANSETRON 4MG/2ML VIAL (J2405) IV ×2 (02:08→09:04)
[2017-09-08] MEDS: IPRATROPIUM 0.5MG/ALBUTEROL 2.5MG INH SOL UD 3ML (DUONEB)(J7620) NEB ×4 (02:36→21:20)
[2017-09-08] MEDS: NS 1,000 ML IV ×2 (03:30→17:48)
[2017-09-08 05:11] LABS: HEMATOCRIT 40.1 % (36.0-47.0); HEMOGLOBIN 12.6 g/dl (12.0-15.5); MEAN CORPUSCULAR HEMOGLOBIN 27.6 pg (27.0-33.0); MEAN CORPUSCULAR HGB CONC 31.4 g/dl (32.0-36.5); MEAN CORPUSCULAR VOLUME 87.7 fl (80.0-96.0); PLATELET COUNT, AUTOMATED 298 10^3/uL (150-450); RED BLOOD COUNT 4.57 10^6/uL (4.00-5.40); RED CELL DISTRIBUTION WIDTH 15.4 % (11.5-14.5); WHITE BLOOD COUNT 10.8 10^3/uL (4.0-10.0)
[2017-09-08] MEDS: MECLIZINE 25 MG TABLET PO ×3 (05:34→20:57)
[2017-09-08 05:59] LABS: ANION GAP 9 MEQ/L (8-16); BLOOD UREA NITROGEN 12 MG/DL (7-18); CALCIUM LEVEL 8.6 MG/DL (8.8-10.2); CARBON DIOXIDE LEVEL 24 MEQ/L (21-32); CHLORIDE LEVEL 108 MEQ/L (98-107); GLOMERULAR FILTRATION RATE > 60.0 (>39); GLUCOSE, FASTING 139 MG/DL (70-100); POTASSIUM SERUM 3.8 MEQ/L (3.5-5.1); SODIUM LEVEL 141 MEQ/L (136-145)
[2017-09-08 07:02] LABS: AMORPHOUS SEDIMENT RFX SMALL (NEGATIVE); KETONE, URINE AUTO RFX 2+ mg/dL (NEGATIVE); MUCUS, URINE RFX SMALL (NEGATIVE); NITRITE, URINE AUTO RFX NEGATIVE (NEGATIVE); RBC, URINE AUTO RFX 12 /HPF (0-3); SPECIFIC GRAVITY UR AUTO RFX 1.018 (1.002-1.035); SQUAM EPITHELIAL CELL UR AURFX 6 /HPF (0-6)
[2017-09-08 07:10] LABS: LEUKOCYTE ESTERASE UR AUTO RFX TRACE (NEGATIVE); WBC, URINE AUTO RFX 31 /HPF (0-3)
[2017-09-08] MEDS: PANTOPRAZOLE 40MG INJ (PROTONIX) (C9113) IV (08:58)
[2017-09-08] MEDS: ALVIMOPAN 12 MG CAPSULE (ENTEREG) PO ×2 (08:58→20:56)
[2017-09-08] MEDS: HumaLOG INSULIN (NovoLOG) PER UNIT SC ×4 (08:59→20:57)
[2017-09-08] MEDS: SIMETHICONE 80 MG CHEW TAB PO ×4 (08:59→20:57)
[2017-09-08 11:39] LABS: BEDSIDE GLUCOSE 129 MG/DL (83-110)
[2017-09-08] MEDS: SPIRONOLACTONE 25 MG TAB PO (12:08)
[2017-09-08 16:54] LABS: BEDSIDE GLUCOSE 123 MG/DL (83-110)
[2017-09-08 20:54] LABS: BEDSIDE GLUCOSE 112 MG/DL (83-110)
[2017-09-08] MEDS: ATORVASTATIN 20 MG TAB PO (20:56)
[2017-09-08] MEDS: PERCOCET 5MG/325MG TAB PO (21:04)
[2017-09-09] MEDS: IPRATROPIUM 0.5MG/ALBUTEROL 2.5MG INH SOL UD 3ML (DUONEB)(J7620) NEB ×4 (01:43→21:14)
[2017-09-09] MEDS: MAALOX 30 ML SUSP *UDC PO (04:11)
[2017-09-09] MEDS: MECLIZINE 25 MG TABLET PO ×3 (05:29→21:06)
[2017-09-09] MEDS: NS 1,000 ML IV (05:31)
[2017-09-09 05:56] LABS: HEMOGLOBIN 12.3 g/dl (12.0-15.5); MEAN CORPUSCULAR HEMOGLOBIN 27.6 pg (27.0-33.0); MEAN CORPUSCULAR HGB CONC 32.4 g/dl (32.0-36.5); MEAN CORPUSCULAR VOLUME 85.4 fl (80.0-96.0); PLATELET COUNT, AUTOMATED 413 10^3/uL (150-450); RED BLOOD COUNT 4.45 10^6/uL (4.00-5.40); RED CELL DISTRIBUTION WIDTH 15.4 % (11.5-14.5); WHITE BLOOD COUNT 11.4 10^3/uL (4.0-10.0)
[2017-09-09 06:10] LABS: ANION GAP 11 MEQ/L (8-16); BLOOD UREA NITROGEN 10 MG/DL (7-18); CALCIUM LEVEL 7.8 MG/DL (8.8-10.2); CARBON DIOXIDE LEVEL 22 MEQ/L (21-32); CHLORIDE LEVEL 108 MEQ/L (98-107); CREATININE FOR GFR 0.52 MG/DL (0.55-1.30); GLOMERULAR FILTRATION RATE > 60.0 (>39); GLUCOSE, FASTING 123 MG/DL (70-100); POTASSIUM SERUM 3.6 MEQ/L (3.5-5.1); SODIUM LEVEL 141 MEQ/L (136-145)
[2017-09-09 06:47] LABS: FREE T4 1.29 NG/DL (0.76-1.46)
[2017-09-09] MEDS: SPIRONOLACTONE 25 MG TAB PO (08:24)
[2017-09-09] MEDS: PANTOPRAZOLE 40MG INJ (PROTONIX) (C9113) IV (08:24)
[2017-09-09] MEDS: AMIODARONE 200 MG TAB (PACERONE) PO (08:24)
[2017-09-09] MEDS: HumaLOG INSULIN (NovoLOG) PER UNIT SC ×4 (08:24→21:00)
[2017-09-09] MEDS: ALVIMOPAN 12 MG CAPSULE (ENTEREG) PO ×2 (08:24→21:07)
[2017-09-09] MEDS: SIMETHICONE 80 MG CHEW TAB PO ×4 (08:24→21:07)
[2017-09-09] MEDS: BISACODYL 10 MG SUPP PR ×2 (09:08→21:07)
[2017-09-09 11:45] LABS: BEDSIDE GLUCOSE 110 MG/DL (83-110)
[2017-09-09] MEDS: DIGOXIN 0.25 MG TAB PO (13:38)
[2017-09-09] MEDS: VERAPAMIL 120 MG SR TAB PO (14:04)
[2017-09-09] MEDS: KCL 20MEQ IN D5/0.45NS 1000ML 1,000 ML IV (14:14)
[2017-09-09] MEDS: FUROSEMIDE 40 MG/4 ML VIAL (J1940) IV (14:15)
[2017-09-09] MEDS: ENOXAPARIN 40 MG/0.4 ML SYRINGE (J1650) SC (15:05)
[2017-09-09 15:07] LABS: TROPONIN I 0.17 NG/ML (< 0.10)
[2017-09-09 16:33] LABS: BEDSIDE GLUCOSE 136 MG/DL (83-110)
[2017-09-09 21:01] LABS: BEDSIDE GLUCOSE 117 MG/DL (83-110)
[2017-09-09] MEDS: ATORVASTATIN 20 MG TAB PO (21:07)
[2017-09-10] MEDS: IPRATROPIUM 0.5MG/ALBUTEROL 2.5MG INH SOL UD 3ML (DUONEB)(J7620) NEB ×4 (02:00→20:01)
[2017-09-10] MEDS: KCL 20MEQ IN D5/0.45NS 1000ML 1,000 ML IV (04:21)
[2017-09-10] MEDS: MECLIZINE 25 MG TABLET PO ×3 (05:42→21:17)
[2017-09-10 05:46] LABS: HEMATOCRIT 33.6 % (36.0-47.0); HEMOGLOBIN 10.8 g/dl (12.0-15.5); MEAN CORPUSCULAR HEMOGLOBIN 28.1 pg (27.0-33.0); MEAN CORPUSCULAR HGB CONC 32.1 g/dl (32.0-36.5); MEAN CORPUSCULAR VOLUME 87.3 fl (80.0-96.0); RED BLOOD COUNT 3.85 10^6/uL (4.00-5.40); RED CELL DISTRIBUTION WIDTH 15.5 % (11.5-14.5); WHITE BLOOD COUNT 7.1 10^3/uL (4.0-10.0)
[2017-09-10 05:57] LABS: PLATELET COUNT, AUTOMATED 297 10^3/uL (150-450)
[2017-09-10 06:13] LABS: ALBUMIN 1.7 GM/DL (3.2-5.2); ALBUMIN/GLOBULIN RATIO 0.46 (1.00-1.93); ALKALINE PHOSPHATASE 54 U/L (45-117); ALT/SGPT 11 U/L (12-78); ANION GAP 7 MEQ/L (8-16); AST/SGOT 21 U/L (7-37); BILIRUBIN,TOTAL 0.5 MG/DL (0.2-1.0); BLOOD UREA NITROGEN 11 MG/DL (7-18); CALCIUM LEVEL 7.4 MG/DL (8.8-10.2); CARBON DIOXIDE LEVEL 25 MEQ/L (21-32); CHLORIDE LEVEL 108 MEQ/L (98-107); CREATININE FOR GFR 0.58 MG/DL (0.55-1.30); GLOMERULAR FILTRATION RATE > 60.0 (>39); GLUCOSE, FASTING 121 MG/DL (70-100); POTASSIUM SERUM 3.7 MEQ/L (3.5-5.1); SODIUM LEVEL 140 MEQ/L (136-145); TOTAL PROTEIN 5.4 GM/DL (6.4-8.2); TROPONIN I 0.14 NG/ML (< 0.10)
[2017-09-10] MEDS: PANTOPRAZOLE 40MG INJ (PROTONIX) (C9113) IV (08:53)
[2017-09-10] MEDS: HumaLOG INSULIN (NovoLOG) PER UNIT SC ×4 (08:53→21:00)
[2017-09-10] MEDS: ENOXAPARIN 40 MG/0.4 ML SYRINGE (J1650) SC (08:54)
[2017-09-10] MEDS: SIMETHICONE 80 MG CHEW TAB PO ×4 (08:54→21:18)
[2017-09-10] MEDS: SPIRONOLACTONE 25 MG TAB PO (08:57)
[2017-09-10] MEDS: ALVIMOPAN 12 MG CAPSULE (ENTEREG) PO (08:57)
[2017-09-10] MEDS: AMIODARONE 200 MG TAB (PACERONE) PO (08:57)
[2017-09-10] MEDS: VERAPAMIL 120 MG SR TAB PO (08:57)
[2017-09-10] MEDS: DIGOXIN 0.125 MG TAB PO (08:58)
[2017-09-10] MEDS: BISACODYL 10 MG SUPP PR (08:58)
[2017-09-10 11:53] LABS: BEDSIDE GLUCOSE 119 MG/DL (83-110)
[2017-09-10 17:00] LABS: BEDSIDE GLUCOSE 78 MG/DL (83-110)
[2017-09-10] MEDS: TORSEMIDE 20 MG TAB PO (19:36)
[2017-09-10 20:27] LABS: BEDSIDE GLUCOSE 85 MG/DL (83-110)
[2017-09-10] MEDS: ATORVASTATIN 20 MG TAB PO (21:17)
[2017-09-10] MEDS: POTASSIUM CHLORIDE 10 MEQ SR TABLET PO (21:18)
[2017-09-11] MEDS: IPRATROPIUM 0.5MG/ALBUTEROL 2.5MG INH SOL UD 3ML (DUONEB)(J7620) NEB ×4 (00:48→20:00)
[2017-09-11] MEDS: APIXABAN 5 MG TAB (ELIQUIS) PO ×2 (05:38→18:17)
[2017-09-11] MEDS: MECLIZINE 25 MG TABLET PO ×3 (05:38→21:24)
[2017-09-11 06:05] LABS: HEMATOCRIT 33.4 % (36.0-47.0); HEMOGLOBIN 10.6 g/dl (12.0-15.5); MEAN CORPUSCULAR HGB CONC 31.7 g/dl (32.0-36.5); MEAN CORPUSCULAR VOLUME 88.1 fl (80.0-96.0); PLATELET COUNT, AUTOMATED 254 10^3/uL (150-450); RED BLOOD COUNT 3.79 10^6/uL (4.00-5.40); RED CELL DISTRIBUTION WIDTH 15.6 % (11.5-14.5); WHITE BLOOD COUNT 7.8 10^3/uL (4.0-10.0)
[2017-09-11 06:25] LABS: ALBUMIN 1.8 GM/DL (3.2-5.2); ANION GAP 9 MEQ/L (8-16); BLOOD UREA NITROGEN 10 MG/DL (7-18); CALCIUM LEVEL 7.5 MG/DL (8.8-10.2); CARBON DIOXIDE LEVEL 20 MEQ/L (21-32); CHLORIDE LEVEL 112 MEQ/L (98-107); CREATININE FOR GFR 0.63 MG/DL (0.55-1.30); GLOMERULAR FILTRATION RATE > 60.0 (>39); GLUCOSE, FASTING 91 MG/DL (70-100); PHOSPHORUS LEVEL 1.8 MG/DL (2.5-4.9); POTASSIUM SERUM 3.3 MEQ/L (3.5-5.1); SODIUM LEVEL 141 MEQ/L (136-145); TROPONIN I 0.08 NG/ML (< 0.10)
[2017-09-11] MEDS: HumaLOG INSULIN (NovoLOG) PER UNIT SC ×4 (07:30→20:36)
[2017-09-11] MEDS: SIMETHICONE 80 MG CHEW TAB PO ×4 (08:06→21:24)
[2017-09-11] MEDS: PANTOPRAZOLE 40MG INJ (PROTONIX) (C9113) IV (08:06)
[2017-09-11] MEDS: POTASSIUM CHLORIDE 10 MEQ SR TABLET PO ×2 (08:06→21:24)
[2017-09-11] MEDS: AMIODARONE 200 MG TAB (PACERONE) PO (08:07)
[2017-09-11] MEDS: VERAPAMIL 120 MG SR TAB PO (08:07)
[2017-09-11] MEDS: DIGOXIN 0.125 MG TAB PO (08:08)
[2017-09-11] MEDS: SPIRONOLACTONE 25 MG TAB PO (08:08)
[2017-09-11] MEDS ORDERED: TORSEMIDE 20 MG TAB PO (09:00)
[2017-09-11 11:35] LABS: BEDSIDE GLUCOSE 89 MG/DL (83-110)
[2017-09-11 17:47] LABS: BEDSIDE GLUCOSE 100 MG/DL (83-110)
[2017-09-11 20:42] LABS: BEDSIDE GLUCOSE 100 MG/DL (83-110)
[2017-09-11] MEDS: ATORVASTATIN 20 MG TAB PO (21:24)
[2017-09-12] MEDS: IPRATROPIUM 0.5MG/ALBUTEROL 2.5MG INH SOL UD 3ML (DUONEB)(J7620) NEB ×2 (02:00→07:45)
[2017-09-12] MEDS: MECLIZINE 25 MG TABLET PO (05:21)
[2017-09-12] MEDS: APIXABAN 5 MG TAB (ELIQUIS) PO (05:21)
[2017-09-12 06:28] LABS: ALBUMIN 1.9 GM/DL (3.2-5.2); ANION GAP 7 MEQ/L (8-16); BLOOD UREA NITROGEN 10 MG/DL (7-18); CALCIUM LEVEL 7.6 MG/DL (8.8-10.2); CARBON DIOXIDE LEVEL 23 MEQ/L (21-32); CHLORIDE LEVEL 113 MEQ/L (98-107); CREATININE FOR GFR 0.55 MG/DL (0.55-1.30); GLOMERULAR FILTRATION RATE > 60.0 (>39); GLUCOSE, FASTING 97 MG/DL (70-100); PHOSPHORUS LEVEL 2.1 MG/DL (2.5-4.9); POTASSIUM SERUM 3.6 MEQ/L (3.5-5.1); SODIUM LEVEL 143 MEQ/L (136-145)
[2017-09-12] MEDS: HumaLOG INSULIN (NovoLOG) PER UNIT SC (07:58)
[2017-09-12] MEDS: PANTOPRAZOLE 40MG INJ (PROTONIX) (C9113) IV (08:35)
[2017-09-12] MEDS: POTASSIUM CHLORIDE 10 MEQ SR TABLET PO (08:35)
[2017-09-12] MEDS: SPIRONOLACTONE 25 MG TAB PO (08:36)
[2017-09-12] MEDS: TORSEMIDE 20 MG TAB PO (08:36)
[2017-09-12] MEDS: DIGOXIN 0.125 MG TAB PO (08:36)
[2017-09-12] MEDS: VERAPAMIL 120 MG SR TAB PO (08:36)
[2017-09-12] MEDS: SIMETHICONE 80 MG CHEW TAB PO (08:36)
[2017-09-12] MEDS: AMIODARONE 200 MG TAB (PACERONE) PO (08:36)
== END 2017-09-12 12:39 | disposition home or self-care (01) | DRG 329 ==
LOC: M OR 12:16 → M PCU 09-06 14:46 → M MSPAV 20:08 → M PCU 09-06 14:50 → M MSPAV 09-11 13:35
PROVIDERS: Specialist; Surgery
PROC: 0DBK4ZZ Excision of Ascending Colon, Percutaneous Endoscopic Approach (ICD-10-PCS; principal; 2017-09-03 14:58)
PROC: 0DB84ZZ Excision of Small Intestine, Percutaneous Endoscopic Approach (ICD-10-PCS; 2017-09-03 14:58)
PROC: 0DNK4ZZ Release Ascending Colon, Percutaneous Endoscopic Approach (ICD-10-PCS; 2017-09-03 14:58)
PROC: 30233N1 Transfusion of Nonautologous Red Blood Cells into Peripheral Vein, Percutaneous Approach (ICD-10-PCS; 2017-09-03 14:58)
DX: D12.2 Benign neoplasm of ascending colon (principal); I50.33 Acute on chronic diastolic (congestive) heart failure; D62 Acute posthemorrhagic anemia; K56.7 Ileus, unspecified; E11.9 Type 2 diabetes mellitus without complications; I48.0 Paroxysmal atrial fibrillation; I25.10 Atherosclerotic heart disease of native coronary artery without angina pectoris; E03.9 Hypothyroidism, unspecified; E66.9 Obesity, unspecified; I11.0 Hypertensive heart disease with heart failure; E78.00 Pure hypercholesterolemia, unspecified; J44.9 Chronic obstructive pulmonary disease, unspecified; Z92.3 Personal history of irradiation; Z98.49 Cataract extraction status, unspecified eye; Z90.2 Acquired absence of lung [part of]; Z95.1 Presence of aortocoronary bypass graft; Z90.710 Acquired absence of both cervix and uterus; Z79.899 Other long term (current) drug therapy; Z99.81 Dependence on supplemental oxygen; Z85.118 Personal history of other malignant neoplasm of bronchus and lung; Z79.4 Long term (current) use of insulin; Z88.0 Allergy status to penicillin; Z88.2 Allergy status to sulfonamides; Z88.1 Allergy status to other antibiotic agents; Z88.8 Allergy status to other drugs, medicaments and biological substances; Z87.891 Personal history of nicotine dependence; Z68.34 Body mass index [BMI] 34.0-34.9, adult